=== PATIENT | male | born 1930 | race Caucasian/White ===

== ENCOUNTER 2017-02-25 14:27 | Inpatient (IN) | payer MEDICARE, OTHER ==
[2017-02-25] VITALS (8 sets, daily range): BP systolic 145–180; BP diastolic 67–94; PULSE 91–118; RESP 16–25; TEMP 98.7–99.4; O2SAT 94–100
[~2017-02-25] VITALS: Ht 170.2 cm; Wt 58.8 kg
--- NOTE | 2017-02-25 15:23 | PD ---
HPI . Altered mental status Chief Complaint: Altered Mental Status Time Seen by Provider: 15:07 Travel History International Travel<30 days: No Contact w/Intl Traveler<30days: No History of Present Illness HPI This [facility] with a chief complaint of altered mental status. The patient has dementia. EMS reports that the patient normally has a very good appetite and has not been eating today. The nursing staff at the facility also noticed that the patient had a black eye today. They do not know the etiology of the black eye. Because of these things, the patient was sent to us for evaluation. This patient suffers from dementia and is not able to provide us with any history. [facility] Social History Tobacco Use: No Allergies-Medications (Allergen,Severity, Reaction): Coded Allergies: Seroquel (Verified Allergy, Severe, 02/25/17) Review of Systems ROS Limitations: Poor Historian Physical Exam Narrative GENERAL: The patient is awake and responds to questions. He is lying on the stretcher with his eyes closed. He is able to tell us his name. SKIN: Warm and dry. HEAD: Atraumatic. Normocephalic. Right periorbital ecchymosis. EYES: Pupils equal and round. Extraocular movements are intact. ENT: No nasal bleeding or discharge. Mucous membranes pink and moist. NECK: Trachea midline. Neck is nontender. Full range of motion. CARDIOVASCULAR: Irregularly irregular rate and rhythm. RESPIRATORY: No accessory muscle use. Lungs sound clear. GASTROINTESTINAL: Abdomen soft, non-tender, nondistended. MUSCULOSKELETAL: No obvious deformities. No edema. NEUROLOGICAL: Awake and alert. The only cranial nerve abnormality is some weakness of the right side of his mouth. Motor grossly within normal limits. Full and equal mysql developer strength. PSYCHIATRIC: Unable to assess. Data Data Last Documented VS Vital Signs Date Time Temp Pulse Resp B/P Pulse Ox O2 Delivery O2 Flow Rate FiO2 02/25/17 17:02 20 96 Room Air 02/25/17 15:15 99.4 105 180/92 Orders Electrocardiogram (02/25/17 15:07) Complete Blood Count With Diff (02/25/17 15:07) Comprehensive Metabolic Panel (02/25/17 15:07) Creatine Kinase (Cpk) (02/25/17 15:07) Prothrombin Time / Inr (Pt) (02/25/17 15:07) Act Partial Throm Time (Ptt) (02/25/17 15:07) Troponin I (02/25/17 15:07) Urinalysis - C+S If Indicated (02/25/17 15:07) Lactic Acid Sepsis Protocol (02/25/17 15:07) Blood Culture (02/25/17 15:07) Ecg Monitoring (02/25/17 15:07) Iv Access Insert/Monitor (02/25/17 15:07) Cath For Specimen (02/25/17 15:07) Oximetry (02/25/17 15:07) Ct Brain W/O Iv Contrast(Rout) (02/25/17 15:14) Chest, Single Ap (02/25/17 15:07) Ns + Kcl 20 Meq Inj (Ns + Kcl 20 Meq Inj (02/25/17 18:47) Admit To Inpatient (02/25/17 ) Neuro Checks . ORDERED (02/25/17 18:47) Activity Bed Rest (02/25/17 18:47) Elevate Head Of Bed (02/25/17 18:47) Intake + Output NORRIS.Q8H (02/25/17 18:47) Scd / José / Foot Pump NORRIS.QSHIFT (02/25/17 18:47) Diet Regular Basic (02/25/17 Dinner) Sodium Chloride 0.9% Flush (Ns Flush) (02/25/17 19:00) Sodium Chloride 0.9% Flush (Ns Flush) (02/25/17 21:00) Docusate Sodium (Colace) (02/25/17 21:00) Pantoprazole (Protonix) (02/26/17 09:00) Ondansetron Inj (Zofran Inj) (02/25/17 19:00) Acetamin-Hydrocod 325-10 Mg ([place] 10-32 (02/25/17 19:00) Labetalol Inj (Trandate Inj) (02/25/17 19:00) Clonidine (Catapres) (02/25/17 19:00) Complete Blood Count With Diff (02/26/17 06:00) Basic Metabolic Panel (Bmp) (02/26/17 06:00) Prothrombin Time / Inr (Pt) (02/26/17 06:00) Act Partial Throm Time (Ptt) (02/26/17 06:00) Resp Incentive Spirometry (02/25/17 ) Consult Pt Eval & Treat (02/25/17 18:47) Nicardipine Inj (Cardene Inj) (02/25/17 19:00) Inpatient Certification (02/25/17 ) Enalaprilat Inj (Vasotec Inj) (02/25/17 19:00) Ct Brain W/O Iv Contrast(Rout) (02/26/17 08:00) Labs Laboratory Tests Test 02/25/17 02/25/17 15:31 16:43 White Blood Count 5.5 TH/MM3 Red Blood Count 4.51 MIL/MM3 Hemoglobin 13.2 GM/DL Hematocrit 39.2 % Mean Corpuscular Volume 86.8 FL Mean Corpuscular Hemoglobin 29.2 PG Mean Corpuscular Hemoglobin 33.7 % Concent Red Cell Distribution Width 14.5 % Platelet Count 179 TH/MM3 Mean Platelet Volume 7.2 FL Neutrophils (%) (Auto) 78.0 % Lymphocytes (%) (Auto) 11.7 % Monocytes (%) (Auto) 9.3 % Eosinophils (%) (Auto) 0.7 % Basophils (%) (Auto) 0.3 % Neutrophils # (Auto) 4.3 TH/MM3 Lymphocytes # (Auto) 0.6 TH/MM3 Monocytes # (Auto) 0.5 TH/MM3 Eosinophils # (Auto) 0.0 TH/MM3 Basophils # (Auto) 0.0 TH/MM3 CBC Comment DIFF FINAL Differential Comment Prothrombin Time 11.4 SEC Prothromb Time International 1.0 RATIO Ratio Activated Partial 26.6 SEC Thromboplast Time Sodium Level 143 MEQ/L Potassium Level 3.5 MEQ/L Chloride Level 106 MEQ/L Carbon Dioxide Level 31.1 MEQ/L Anion Gap 6 MEQ/L Blood Urea Nitrogen 23 MG/DL Creatinine 0.93 MG/DL Estimat Glomerular Filtration 77 ML/MIN Rate Random Glucose 99 MG/DL Lactic Acid Level 1.2 mmol/L Calcium Level 9.3 MG/DL Total Bilirubin 1.2 MG/DL Aspartate Amino Transf 17 U/L (AST/SGOT) Alanine Aminotransferase 16 U/L (ALT/SGPT) Alkaline Phosphatase 101 U/L Total Creatine Kinase 79 U/L Troponin I LESS THAN 0.02 NG/ML Total Protein 6.7 GM/DL Albumin 3.5 GM/DL Urine Color YELLOW Urine Turbidity CLEAR Urine pH 6.0 Urine Specific [place] 1.022 Urine Protein TRACE mg/dL Urine Glucose (UA) NEG mg/dL Urine Ketones NEG mg/dL Urine Occult Blood TRACE Urine Nitrite NEG Urine Bilirubin NEG Urine Urobilinogen LESS THAN 2.0 MG/DL Urine Leukocyte Esterase NEG Urine RBC 6 /hpf Urine Hyaline Casts 1 /lpf Urine Mucus FEW /lpf Microscopic Urinalysis Comment CATH-CULT NOT IND MDM Medical Decision Making Medical Screen Exam Complete: Yes Emergency Medical Condition: Yes Medical Record Reviewed: Yes (this patient has no previous records here. He has very little formation that was sent with him from the jail.) Interpretation(s) EKG shows a normal sinus rhythm with no ST segment elevation or depression. Differential Diagnosis Differential diagnosis of altered mental status includes but is not limited to infection, electrolyte abnormality, neurological event, intoxication Narrative Course This patient presents to us from the jail because of altered mental status. He does have evidence of trauma to his head. CT has been ordered. Basic labs and urinalysis have also been ordered. CBC & BMP Diagram 02/25/17 15:31 Cardiac enzymes are negative. LFTs are basically normal. Lactic acid is normal. UA shows no evidence of infection. Last Impressions Head CT 02/25/17 1514 Signed Impressions: Service Date/Time: Saturday, February 25, 2017 17:37 - CONCLUSION: 4 cm parenchymal hematoma in the right parieto-occipital region Samy Maldonado MD Chest X-Ray 02/25/17 1507 Signed Impressions: Service Date/Time: Saturday, February 25, 2017 15:19 - CONCLUSION: No acute cardiopulmonary abnormality is identified. Samy Talavera MD I will consult neurosurgery. Diagnosis Primary Impression: Altered mental status Qualified Code: R41.82 - Altered mental status, unspecified altered mental status type Additional Impression: Intracerebral hematoma Qualified Code: S06.349A - Traumatic hemorrhage of right cerebrum with loss of consciousness, initial encounter Admitting Information Admitting Physician Requests: Admit Condition: Stable Natalya Walters MD Feb 25, 2017 15:23
--- NOTE | 2017-02-25 15:48 | RADRPT ---
EXAM DATE/TIME: 02/25/2017 15:19 [facility] COMPARISON: No previous studies available for comparison. INDICATIONS : Syncope MEDICAL HISTORY : None. SURGICAL HISTORY : None. ENCOUNTER: Initial ACUITY: 1 day PAIN SCORE: Non-responsive. LOCATION: Bilateral chest FINDINGS: AP view of the chest demonstrates a normal-sized cardiac silhouette with tortuous descending thoracic aorta and calcification of the aorta. No effusion, consolidation, or pneumothorax is visualized. Bon es and soft tissues demonstrate no acute finding. CONCLUSION: No acute cardiopulmonary abnormality is identified. Samy Talavera MD on February 25, 2017 at 15:46 Board Certified Radiologist. This report was verified electronically.
[2017-02-25 15:50] LABS: AUTOMATED NEUTROPHIL # 4.3 TH/MM3 (1.8-7.7); BASOPHIL % 0.3 % (0.0-2.0); EOSINOPHIL % 0.7 % (0.0-4.0); HEMATOCRIT 39.2 % (39.0-51.0); HEMO FLAGS DIFF FINAL; LYMPH % 11.7 % (9.0-44.0); LYMPHOCYTE # 0.6 TH/MM3 (1.0-4.8); MEAN CELL VOLUME 86.8 FL (80.0-100.0); MEAN CORPUSCULAR HEMOGLOBIN 29.2 PG (27.0-34.0); MEAN CORPUSCULAR HGB CONC 33.7 % (32.0-36.0); MONO % 9.3 % (0.0-8.0); PLATELET COUNT 179 TH/MM3 (150-450); RED BLOOD COUNT 4.51 MIL/MM3 (4.50-5.90); RED CELL DISTRIBUTION WIDTH 14.5 % (11.6-17.2); WHITE BLOOD COUNT 5.5 TH/MM3 (4.0-11.0)
[2017-02-25 16:03] LABS: APTT (PATIENT) 26.6 SEC (24.3-30.1); PROTHROMBIN TIME - PATIENT 11.4 SEC (9.8-11.6)
[2017-02-25 16:14] LABS: ALT (GPT) 16 U/L (12-78); ANION GAP 6 MEQ/L (5-15); AST (GOT) 17 U/L (15-37); BICARBONATE 31.1 MEQ/L (21.0-32.0); BLOOD UREA NITROGEN 23 MG/DL (7-18); CHLORIDE 106 MEQ/L (98-107); GLOMERULAR FILTRATION RATE 77 ML/MIN (>89); POTASSIUM 3.5 MEQ/L (3.5-5.1); SODIUM (NA) 143 MEQ/L (136-145)
[2017-02-25 16:18] LABS: ALKALINE PHOSPHATASE 101 U/L (45-117); TOTAL BILIRUBIN ADULT 1.2 MG/DL (0.2-1.0)
[2017-02-25 16:20] LABS: CREATINE KINASE 79 U/L (39-308)
[2017-02-25 17:24] LABS: BLOOD, URINE TRACE (NEG); GLUCOSE,URINE NEG (NEG); HYALINE CAST, URINE 1 /lpf (RARE); KETONE, URINE NEG (NEG); MUCUS URINE FEW /lpf (OCC); NITRITE,URINE NEG (NEG); URINE COLOR YELLOW (YELLW/STRAW)
[2017-02-25 17:26] LABS: COMMENT (UR) CATH-CULT NOT IND; CULTURE IF INDICATED CATH CULTURE NOT IND
--- NOTE | 2017-02-25 17:45 | RADRPT ---
EXAM DATE/TIME: 02/25/2017 17:37 [facility] COMPARISON: No previous studies available for comparison. INDICATIONS : Altered mental status. RADIATION DOSE: 36.18 CTDIvol (mGy) MEDICAL HISTORY : Non-responsive. SURGICAL HISTORY : Non-responsive. ENCOUNTER: Initial ACUITY: 1 day PAIN SCALE: Non-responsive LOCATION: cranial TECHNIQUE: Multiple contiguous axial images were obtained of the head. Using automated exposure control and adj ustment of the mA and/or kV according to patient size, radiation dose was kept as low as reasonably a chievable to obtain optimal diagnostic quality images. DICOM format image data is available electro nically for review and comparison. FINDINGS: There is a 4 cm parenchymal hematoma in the right parieto-occipital region with mild surrounding ministerio a. There is moderate local mass effect with effacement of the regional cortical sulci. There is encep halomalacia in the contralateral left occipital region. The ventricles are minimally asymmetric. No s ignificant brain shift is present. The basal cisterns are patent. The extracranial structures are joi ign and intact. CONCLUSION: 4 cm parenchymal hematoma in the right parieto-occipital region Samy Maldonado MD on February 25, 2017 at 17:41 Board Certified Radiologist. This report was verified electronically.
[2017-02-25] MEDS ORDERED: SODIUM CHLORIDE 0.9% FLUSH 10 ML FLUSH IV FLUSH PRN (19:00)
[2017-02-25] MEDS ORDERED: ACETAMINOPHEN/HYDROcodone 325 MG/10 MG TAB PO PRN (19:00)
[2017-02-25] MEDS ORDERED: cloNIDine HCL 0.1 MG TAB NG PRN (19:00)
[2017-02-25] MEDS ORDERED: ONDANSETRON HCL 4 MG/2 ML VIAL IV PRN (19:00)
[2017-02-25] MEDS ORDERED: niCARdipine INJ 25 MG in SODIUM CHLOR 0.9% 250 ML INJ 250 ML IV PRN (19:00)
--- NOTE | 2017-02-25 19:14 | HHI.HP ---
HPI Service Neurosurgery Primary Care Physician Unknown Chief Complaint: Patient fell History of Present Illness 86-year-old male brought to the emergency room from the long term facility where he resides. According to the patient's son, who accompanies patient in the emergency room, the patient was found on the ground this morning. No definite witnessed fall although he was noted to have ecchymosis around the right eye. No seizure activity reported. The patient has a history of dementia. His son states that the patient has not had a significant change in his mental status today or over the recent past few days. However it has been noticed that he has not been eating as much over the past few weeks and also not ambulating as much as usual. His son states that the patient is usually very active, ambulating quite a bit. Patient apparently started to get problems with dementia approximately 3 years ago. He initially was living with his son, but became too difficult to care for and has been in the assisted-living facility for an extended time. Review of Systems Review of systems cannot be obtained from the patient. His son states that the patient has not had any complaints recently. Other than the problems as noted above, he has not had any obvious medical issues recently. Past Family Social History Allergies: Coded Allergies: Seroquel (Verified Allergy, Severe, 02/25/17) Past Medical History History of gastroesophageal reflux Dementia Hypertension Past Surgical History AAA repair 40 years ago Reported Medications Zestril 5 mg by mouth daily Claritin 10 mg by mouth daily Xanax 0.5 mg twice a day Namenda 5 mg by mouth twice a day Restoril 50 mg at bedtime daily Desyrel 100 mg by mouth at bedtime daily Family History Negative for cancer, diabetes, neurologic disorders, cardiac disease Social History He is to smoke a pipe many years ago. No history of alcohol use Physical Exam Vital Signs Vital Signs Date Time Temp Pulse Resp B/P Pulse Ox O2 Delivery O2 Flow Rate FiO2 02/25/17 17:02 20 96 Room Air 02/25/17 15:15 99.4 105 16 180/92 95 Physical Exam Gen.: Normally developed elderly gentleman in no apparent distress. Respiratory: Mild inspiratory wheeze left upper lobe Cardiac: Regular without murmur. No carotid bruit Abdomen: Soft and nontender. Decreased bowel sounds. No hepatosplenomegaly Extremities: No significant extremity edema. No lower extremity cyanosis. No significant varicosities. Dorsalis pedis posterior plus bilateral. Skin: Scattered skin contusions. No significant laceration. Musculoskeletal: No long bone or joint deformity throughout the upper or lower extremities. No pain with upper and lower extremity range of motion. HEENT: Tympanic membranes clear. Upper dentures. Poor lower dentition. Right periorbital mild edema and ecchymosis. No CSF otorrhea or rhinorrhea. Sclerae are clear and nonicteric. No other facial ecchymosis or edema noted. Head: Normocephalic. No scalp lacerations contusions tenderness or edema. Neurologic: Mild lethargy. Arouses easily to voice. Opens eyes briefly to voice. Follows a few simple commands. Answers questions with a few words with soft speech with mild dysarthria. Significant confusion. Memory cannot be adequately assessed but appears markedly diminished. Pupils 3 mm reactive to 2 mm Conjugate extraocular movements Right facial paresis Tongue protrudes in the midline Facial sensory appears intact Acknowledges hearing to finger rub bilateral Response to visual stimuli grossly in the right and left quadrants of both eyes. Sternocleidomastoid muscle testing intact. Sensation appears intact to light touch all extremities per patient report. He moves all extremities major flexion and extension groups with good strength Poonam's response absent bilateral No ankle clonus Plantar responses are neutral Fine motor movements are moderately impaired in the upper extremities but difficult to test due to decreased mental status. Laboratory Laboratory Tests Test 02/25/17 02/25/17 15:31 16:43 White Blood Count 5.5 Red Blood Count 4.51 Hemoglobin 13.2 Hematocrit 39.2 Mean Corpuscular Volume 86.8 Mean Corpuscular Hemoglobin 29.2 Mean Corpuscular Hemoglobin 33.7 Concent Red Cell Distribution Width 14.5 Platelet Count 179 Mean Platelet Volume 7.2 Neutrophils (%) (Auto) 78.0 Lymphocytes (%) (Auto) 11.7 Monocytes (%) (Auto) 9.3 Eosinophils (%) (Auto) 0.7 Basophils (%) (Auto) 0.3 Neutrophils # (Auto) 4.3 Lymphocytes # (Auto) 0.6 Monocytes # (Auto) 0.5 Eosinophils # (Auto) 0.0 Basophils # (Auto) 0.0 CBC Comment DIFF FINAL Differential Comment Prothrombin Time 11.4 Prothromb Time International 1.0 Ratio Activated Partial 26.6 Thromboplast Time Sodium Level 143 Potassium Level 3.5 Chloride Level 106 Carbon Dioxide Level 31.1 Anion Gap 6 Blood Urea Nitrogen 23 Creatinine 0.93 Estimat Glomerular Filtration 77 Rate Random Glucose 99 Lactic Acid Level 1.2 Calcium Level 9.3 Total Bilirubin 1.2 Aspartate Amino Transf 17 (AST/SGOT) Alanine Aminotransferase 16 (ALT/SGPT) Alkaline Phosphatase 101 Total Creatine Kinase 79 Troponin I LESS THAN 0.02 Total Protein 6.7 Albumin 3.5 Urine Color YELLOW Urine Turbidity CLEAR Urine pH 6.0 Urine Specific [place] 1.022 Urine Protein TRACE Urine Glucose (UA) NEG Urine Ketones NEG Urine Occult Blood TRACE Urine Nitrite NEG Urine Bilirubin NEG Urine Urobilinogen LESS THAN 2.0 Urine Leukocyte Esterase NEG Urine RBC 6 Urine Hyaline Casts 1 Urine Mucus FEW Microscopic Urinalysis Comment CATH-CULT NOT IND Date/Time Procedure Status Source Growth 02/25/17 15:37 Aerobic Blood Culture Received Blood Peripheral Pending 02/25/17 15:37 Anaerobic Blood Culture Received Blood Peripheral Pending Result Diagram: 02/25/17 1531 02/25/17 1531 Imaging 02/25/17 CT scan head images reviewed by the undersigned. Agree with findings as noted below. No skull fracture and pneumocephalus or hydrocephalus noted. No evidence of infarction.: Head CT 02/25/17 1514 Signed Impressions: Service Date/Time: Saturday, February 25, 2017 17:37 - CONCLUSION: 4 cm parenchymal hematoma in the right parieto-occipital region Samy Maldonado MD Chest X-Ray 02/25/17 1507 Signed Impressions: Service Date/Time: Saturday, February 25, 2017 15:19 - CONCLUSION: No acute cardiopulmonary abnormality is identified. Samy Talavera MD Assessment and Plan Assessment and Plan Impression: 1. Right occipital intracranial hemorrhage. Most likely traumatic hemorrhagic contusion. 2. Hypertension 3. Dementia 4. Probable right basilar skull fracture versus localized contusion of the right orbit. No hemotympanum. Plan: Findings were discussed with the patient's son in the emergency room. Plan admission to the intensive surgical care unit for close neurologic checks and vital signs. Antihypertensive medications as needed for control of blood pressure. Continue baseline medications. Non-chemical DVT prophylaxis Ulcer prophylaxis Physical therapy and out of bed with assistance tolerated. Advance diet as tolerated Follow-up CT scan head 02/26/17 Advised the patient's son that patient is a moderate risk for further delayed intracranial hemorrhage. He states that his father has a living will. Roosevelt Vasquez MD Feb 25, 2017 19:14
[2017-02-25] MEDS: ENALAPRILAT 1.25 MG/ML VIAL IV PUSH PRN (19:51)
[2017-02-25] MEDS: NS + KCL 20 MEQ INJ 1,000 ML IV SCH (19:51)
[2017-02-25] MEDS ORDERED: LISI-589 PO (21:04)
[2017-02-25] MEDS: MEMANTINE HCL 5 MG TAB PO SCH (22:13)
[2017-02-25] MEDS: ALPRAZolam 0.5 MG TAB PO SCH (22:14)
[2017-02-25] MEDS: SODIUM CHLORIDE 0.9% FLUSH 10 ML FLUSH IV FLUSH SCH (22:14)
[2017-02-25] MEDS: DOCUSATE SODIUM 100 MG CAP PO SCH (22:14)
[2017-02-25] MEDS: traZODone HCL 100 MG TAB PO SCH (22:14)
[2017-02-25] MEDS: TEMAZEPAM 15 MG CAP PO PRN (23:38)
[2017-02-26] VITALS (17 sets, daily range): BP systolic 144–167; BP diastolic 63–94; PULSE 65–105; RESP 17–35; TEMP 97–98.7; O2SAT 94–99
[2017-02-26] MEDS ORDERED: ALPR.5 PO (04:30)
[2017-02-26] MEDS ORDERED: REST15CA PO (04:30)
[2017-02-26] MEDS ORDERED: NAME5TAB2 PO (04:30)
[2017-02-26] MEDS ORDERED: CLAR10CA3 PO (04:30)
[2017-02-26 04:37] LABS: AUTOMATED NEUTROPHIL # 3.5 TH/MM3 (1.8-7.7); BASOPHIL % 0.5 % (0.0-2.0); EOSINOPHIL # 0.1 TH/MM3 (0-0.4); EOSINOPHIL % 1.2 % (0.0-4.0); HEMATOCRIT 35.3 % (39.0-51.0); HEMO FLAGS DIFF FINAL; LYMPH % 16.6 % (9.0-44.0); LYMPHOCYTE # 0.8 TH/MM3 (1.0-4.8); MEAN CELL VOLUME 84.8 FL (80.0-100.0); MEAN CORPUSCULAR HEMOGLOBIN 29.3 PG (27.0-34.0); MEAN CORPUSCULAR HGB CONC 34.5 % (32.0-36.0); MONO % 8.9 % (0.0-8.0); NEUT % 72.8 % (16.0-70.0); PLATELET COUNT 160 TH/MM3 (150-450); RED BLOOD COUNT 4.16 MIL/MM3 (4.50-5.90); RED CELL DISTRIBUTION WIDTH 14.2 % (11.6-17.2); WHITE BLOOD COUNT 4.8 TH/MM3 (4.0-11.0)
[2017-02-26 04:50] LABS: APTT (PATIENT) 28.7 SEC (24.3-30.1); INTERNATIONAL NORMALIZED RATIO 1.1 RATIO; PROTHROMBIN TIME - PATIENT 11.7 SEC (9.8-11.6)
[2017-02-26 05:06] LABS: BICARBONATE 27.8 MEQ/L (21.0-32.0); POTASSIUM 3.8 MEQ/L (3.5-5.1)
[2017-02-26] MEDS: ENALAPRILAT 1.25 MG/ML VIAL IV PUSH PRN ×2 (05:07→21:59)
[2017-02-26] MEDS: NS + KCL 20 MEQ INJ 1,000 ML IV SCH ×2 (05:08→16:15)
[2017-02-26] MEDS: LABETALOL HCL 100 MG/20 ML VIAL IV PRN (06:47)
--- NOTE | 2017-02-26 08:35 | RADRPT ---
EXAM DATE/TIME: 02/26/2017 08:11 [facility] COMPARISON: CT BRAIN W/O CONTRAST, February 25, 2017, 17:37. INDICATIONS : Evaluate hemorrhage. RADIATION DOSE: 46.37 CTDIvol (mGy) MEDICAL HISTORY : Hypertension. Dementia. SURGICAL HISTORY : None. ENCOUNTER: Subsequent ACUITY: 1 day PAIN SCALE: Non-responsive LOCATION: cranial TECHNIQUE: Multiple contiguous axial images were obtained of the head. Using automated exposure control and adj ustment of the mA and/or kV according to patient size, radiation dose was kept as low as reasonably a chievable to obtain optimal diagnostic quality images. DICOM format image data is available electro nically for review and comparison. FINDINGS: Again noted is intraparenchymal hemorrhage in right posterior parietal occipital junction measur es almost 3.3 cm in the AP diameter not significantly changed with surrounding vasogenic edema and no appreciable mass effect. There is encephalomalacia on the left side and not changed. The rest of the examination has not significantly changed. CONCLUSION: Fairly stable intraparenchymal hemorrhage on the right without any mass effect. Jennifer Parisi MD on February 26, 2017 at 8:29 Board Certified Radiologist. This report was verified electronically.
[2017-02-26] MEDS: SODIUM CHLORIDE 0.9% FLUSH 10 ML FLUSH IV FLUSH SCH ×2 (09:00→20:15)
[2017-02-26] MEDS: MEMANTINE HCL 5 MG TAB PO SCH ×2 (09:23→20:15)
[2017-02-26] MEDS: LISINOPRIL 5 MG TAB PO SCH (09:23)
[2017-02-26] MEDS: PANTOPRAZOLE SOD 40 MG DELAYED RELEASE TAB PO SCH (09:23)
[2017-02-26] MEDS: DOCUSATE SODIUM 100 MG CAP PO SCH ×2 (09:23→20:15)
[2017-02-26] MEDS: LORATADINE 10 MG TAB PO SCH (09:23)
[2017-02-26] MEDS: ALPRAZolam 0.5 MG TAB PO SCH ×2 (09:33→20:15)
--- NOTE | 2017-02-26 09:50 | HHI.NSPN ---
(Jun Rangel) History Chief Complaint: Unable to obtain due to patient's clinical condition. (Jun Rangel) Interval History 02/25: 86-year-old male brought to the emergency room from the long-term facility where he resides. According to the patient's son, who accompanies patient in the emergency room, the patient was found on the ground this morning. No definite witnessed fall although he was noted to have ecchymosis around the right eye. No seizure activity reported. The patient has a history of dementia. His son states that the patient has not had a significant change in his mental status today or over the recent past few days. However it has been noticed that he has not been eating as much over the past few weeks and also not ambulating as much as usual. His son states that the patient is usually very active, ambulating quite a bit. Patient apparently started to get problems with dementia approximately 3 years ago. He initially was living with his son, but became too difficult to care for and has been in the assisted-living facility for an extended time. 02/26: Patient asleep but awakens to verbal stimuli. He does interact but his voice is soft and his conversation is confused and meanders. He had a repeat CT brain this morning which was essentially unchanged. (Jun Rangel) System Review Comments Unable to obtain due to patient's clinical condition. (Jun Rangel) Exam Results Vital Signs Date Time Temp Pulse Resp B/P Pulse Ox O2 Delivery O2 Flow Rate FiO2 02/26/17 06:00 87 02/26/17 06:00 23 159/78 96 02/26/17 04:00 98.7 02/25/17 21:02 Room Air Intake and Output 02/25/17 02/25/17 02/26/17 08:00 16:00 00:00 Intake Total 477 ml Output Total 800 ml Balance -323 ml (Jun Rangel) Physical Examination General: Patient asleep and awakens to verbal stimuli, readily converses, no apparent distress. HEENT: Right lateral orbital ecchymosis NTTP. PERRLA, EOM appear intact. Respiratory: CTAB w/o W/R/R, equal excursion, nonlaboured, on RA. Cardiac: S1S2 w/RRR w/o M/G/R, radial & pedal pulses 2+ bilaterally, cap refill < 2 sec, no pedal edema. Monitor is sinus rhythm w/o any ectopy noted. Abdomen: Soft, nontender, positive bowel sounds. Skin: Cool, dry & intact. Scattered ecchymosis ages indeterminate, no evident rashes, ulcerations or other lesions. Musculoskeletal: MONTANO to command. No evident deformities or clubbing. Neurologic: Asleep but opens eyes to verbal stimuli, confused, GCS 12-13 (E3 V3-4 M6) Speech soft & muffled and not always clear, inappropriate to questions asked Follows simple commands w/coaxing but inconsistently PERRL 3 mm to 2 mm Motor strength 5/5 RUE, hand tube cleaning operator & triceps 4+/5, RLE 5/5, plantar extension LLE 5/5, otherwise patient wasn't able or cooperative in testing (Jun Rangel) Lab, Micro, Other Results This practitioner reviewed the CT imaging for today and compared with yesterday' s, the intraparenchymal haemorrhage appears stable. Allergies Coded Allergies Type Severity Reaction Last Updated Verified Seroquel Allergy Severe 02/25/17 Yes Recent Impressions Head CT 02/26/17 0800 Signed Impressions: Service Date/Time: Sunday, February 26, 2017 08:11 - CONCLUSION: Fairly stable intraparenchymal hemorrhage on the right without any mass effect. Jennifer Parisi MD Head CT 02/25/17 1514 Signed Impressions: Service Date/Time: Saturday, February 25, 2017 17:37 - CONCLUSION: 4 cm parenchymal hematoma in the right parieto-occipital region Samy Maldonado MD Chest X-Ray 02/25/17 1507 Signed Impressions: Service Date/Time: Saturday, February 25, 2017 15:19 - CONCLUSION: No acute cardiopulmonary abnormality is identified. Samy Talavera MD 06:00 18:00 06:00 18:00 06:00 18:00 Intake Total 477 ml Output Total 800 ml Balance -323 ml Intake Oral 120 ml IV Total 357 ml Output Urine Total 800 ml # Voids 1 Laboratory Tests Test 02/25/17 02/25/17 02/26/17 15:31 16:43 04:27 White Blood Count 5.5 TH/MM3 4.8 TH/MM3 Red Blood Count 4.51 MIL/MM3 4.16 MIL/MM3 Hemoglobin 13.2 GM/DL 12.2 GM/DL Hematocrit 39.2 % 35.3 % Mean Corpuscular Volume 86.8 FL 84.8 FL Mean Corpuscular Hemoglobin 29.2 PG 29.3 PG Mean Corpuscular Hemoglobin 33.7 % 34.5 % Concent Red Cell Distribution Width 14.5 % 14.2 % Platelet Count 179 TH/MM3 160 TH/MM3 Mean Platelet Volume 7.2 FL 6.7 FL Neutrophils (%) (Auto) 78.0 % 72.8 % Lymphocytes (%) (Auto) 11.7 % 16.6 % Monocytes (%) (Auto) 9.3 % 8.9 % Eosinophils (%) (Auto) 0.7 % 1.2 % Basophils (%) (Auto) 0.3 % 0.5 % Neutrophils # (Auto) 4.3 TH/MM3 3.5 TH/MM3 Lymphocytes # (Auto) 0.6 TH/MM3 0.8 TH/MM3 Monocytes # (Auto) 0.5 TH/MM3 0.4 TH/MM3 Eosinophils # (Auto) 0.0 TH/MM3 0.1 TH/MM3 Basophils # (Auto) 0.0 TH/MM3 0.0 TH/MM3 CBC Comment DIFF FINAL DIFF FINAL Differential Comment Prothrombin Time 11.4 SEC 11.7 SEC Prothromb Time International 1.0 RATIO 1.1 RATIO Ratio Activated Partial 26.6 SEC 28.7 SEC Thromboplast Time Sodium Level 143 MEQ/L 141 MEQ/L Potassium Level 3.5 MEQ/L 3.8 MEQ/L Chloride Level 106 MEQ/L 107 MEQ/L Carbon Dioxide Level 31.1 MEQ/L 27.8 MEQ/L Anion Gap 6 MEQ/L 6 MEQ/L Blood Urea Nitrogen 23 MG/DL 20 MG/DL Creatinine 0.93 MG/DL 0.77 MG/DL Estimat Glomerular Filtration 77 ML/MIN 96 ML/MIN Rate Random Glucose 99 MG/DL 108 MG/DL Lactic Acid Level 1.2 mmol/L Calcium Level 9.3 MG/DL 9.2 MG/DL Total Bilirubin 1.2 MG/DL Aspartate Amino Transf 17 U/L (AST/SGOT) Alanine Aminotransferase 16 U/L (ALT/SGPT) Alkaline Phosphatase 101 U/L Total Creatine Kinase 79 U/L Troponin I LESS THAN 0.02 NG/ML Total Protein 6.7 GM/DL Albumin 3.5 GM/DL Urine Color YELLOW Urine Turbidity CLEAR Urine pH 6.0 Urine Specific [place] 1.022 Urine Protein TRACE mg/dL Urine Glucose (UA) NEG mg/dL Urine Ketones NEG mg/dL Urine Occult Blood TRACE Urine Nitrite NEG Urine Bilirubin NEG Urine Urobilinogen LESS THAN 2.0 MG/DL Urine Leukocyte Esterase NEG Urine RBC 6 /hpf Urine Hyaline Casts 1 /lpf Urine Mucus FEW /lpf Microscopic Urinalysis Comment CATH-CULT NOT IND Vital Signs Date Time Temp Pulse Resp B/P Pulse Ox O2 Delivery O2 Flow Rate FiO2 02/26/17 06:00 87 02/26/17 06:00 87 23 159/78 96 02/26/17 05:00 98 27 158/77 94 02/26/17 04:00 98.7 92 17 146/76 94 02/26/17 04:00 87 02/26/17 03:00 87 21 163/71 96 02/26/17 02:00 92 35 158/73 94 02/26/17 02:00 92 02/26/17 01:00 95 23 155/72 96 02/26/17 00:00 105 02/26/17 00:00 98.6 105 22 157/70 94 02/25/17 23:00 118 22 146/67 94 02/25/17 22:00 98.9 91 25 145/77 95 02/25/17 22:00 91 02/25/17 21:02 106 18 153/94 98 Room Air 02/25/17 20:15 106 18 158/78 97 Room Air 02/25/17 19:46 107 18 176/94 97 Room Air 02/25/17 19:20 98.7 115 18 167/78 100 Room Air 02/25/17 17:02 20 96 Room Air 02/25/17 15:15 99.4 105 16 180/92 95 (Jun Rangel) Medical Decision Making Impression and Plan Impression: 1. Right occipital intracranial hemorrhage. Most likely traumatic hemorrhagic contusion. 2. Hypertension 3. Dementia 4. Probable right basilar skull fracture versus localized contusion of the right orbit. No hemotympanum. CT brain essentially stable intraparenchymal haemorrhage w/o any mass effect Patient appears neurologically stable Plan: Frequent neuro checks Antihypertensive medications as needed for control of blood pressure. Continue baseline medications. Non-chemical DVT prophylaxis Ulcer prophylaxis Physical therapy and out of bed with assistance tolerated. Advance diet as tolerated (Jun Rangel) Attending Statement The exam, history, and the medical decision-making described in the above note were completed with the assistance of the mid-level provider. I reviewed and agree with the findings presented. I attest that I had a [id number] encounter with the patient on the same day, and personally performed and documented my assessment and findings in the medical record. On my examination today, the patient is sitting up in a chair. He has no eye opening spontaneously to voice. Pupils are 3 mm nonreactive. Slightly disconjugate moderate extraocular movements. He responds to simple questions with mostly unintelligible speech, significant dysarthria. He moves all extremities to command with moderate to good strength, slightly less than the left upper extremity. 02/26/17 CT scan head images reviewed by the undersigned. He has a stable right occipital intracranial hemorrhage without significant mass effect. Continuing close intensive care neurologic checks and vital signs. Systolic blood pressure mostly in the 140s-150s today. Continue non-chemical DVT prophylaxis. Diet as tolerated. Physical therapy following. Discussed with therapy today. (Roosevelt Vasquez MD) Jun Rangel Feb 26, 2017 09:50 Roosevelt Vasquez MD Feb 26, 2017 14:16
--- NOTE | 2017-02-26 12:23 | EKG ---
Date Performed: 02/25/2017 Time Performed: 17:10:09 PTAGE: 86 years EKG: SINUS TACHYCARDIA MARKED LEFT AXIS DEVIATION ABNORMAL ECG NO PREVIOUS TRACING DOCTOR: Taran Clements Interpretating Date/Time 02/26/2017 12:19:55
[2017-02-26] MEDS: traZODone HCL 100 MG TAB PO SCH (20:15)
[2017-02-26] MEDS: TEMAZEPAM 15 MG CAP PO PRN (21:59)
[2017-02-27] VITALS (11 sets, daily range): BP systolic 150–176; BP diastolic 70–97; PULSE 66–101; RESP 17–26; TEMP 97.9–99.2; O2SAT 91–100
[2017-02-27] MEDS: NS + KCL 20 MEQ INJ 1,000 ML IV SCH ×3 (02:04→23:40)
[2017-02-27] MEDS: LABETALOL HCL 100 MG/20 ML VIAL IV PRN ×2 (03:37→12:42)
[2017-02-27] MEDS: MEMANTINE HCL 5 MG TAB PO SCH ×2 (08:16→23:39)
[2017-02-27] MEDS: DOCUSATE SODIUM 100 MG CAP PO SCH ×2 (08:16→23:39)
[2017-02-27] MEDS: ALPRAZolam 0.5 MG TAB PO SCH ×2 (08:16→23:39)
[2017-02-27] MEDS: LORATADINE 10 MG TAB PO SCH (08:16)
[2017-02-27] MEDS: SODIUM CHLORIDE 0.9% FLUSH 10 ML FLUSH IV FLUSH SCH ×2 (08:16→21:00)
[2017-02-27] MEDS: LISINOPRIL 5 MG TAB PO SCH (08:16)
[2017-02-27] MEDS: PANTOPRAZOLE SOD 40 MG DELAYED RELEASE TAB PO SCH (08:16)
--- NOTE | 2017-02-27 10:38 | HHI.NSPN ---
(Jun Rangel) History Chief Complaint: Unable to obtain due to patient's clinical condition. (Jun Rangel) Interval History 02/25: 86-year-old male [facility]. According to the patient's son, who accompanies patient in the emergency room, the patient was found on the ground this morning. No definite witnessed fall although he was noted to have ecchymosis around the right eye. No seizure activity reported. The patient has a history of dementia. His son states that the patient has not had a significant change in his mental status today or over the recent past few days. However it has been noticed that he has not been eating as much over the past few weeks and also not ambulating as much as usual. His son states that the patient is usually very active, ambulating quite a bit. Patient apparently started to get problems with dementia approximately 3 years ago. He initially was living with his son, but became too difficult to care for and has been in the assisted-living facility for an extended time. 02/26: Patient asleep but awakens to verbal stimuli. He does interact but his voice is soft and his conversation is confused and meanders. He had a repeat CT brain this morning which was essentially unchanged. 02/27: Patient awake and fidgeting about this morning. His conversation is rambling and muffled. (Jun Rangel) System Review Comments Unable to obtain due to patient's clinical condition. (Jun Rangel) Exam Results Vital Signs Date Time Temp Pulse Resp B/P Pulse Ox O2 Delivery O2 Flow Rate FiO2 02/27/17 10:00 72 02/27/17 08:00 98.5 25 162/81 100 02/27/17 07:00 Room Air Intake and Output 02/26/17 02/26/17 02/27/17 08:00 16:00 00:00 Intake Total 1041 ml 938 ml Balance 1041 ml 938 ml (Jun Rangel) Physical Examination General: Patient awake & readily interacts & converses, no apparent distress. HEENT: Right lateral orbital ecchymosis NTTP. PERRLA, EOM appear intact. Respiratory: CTAB w/o W/R/R, equal excursion, nonlaboured, on RA. Cardiac: S1S2 w/RRR w/o M/G/R, radial & pedal pulses 2+ bilaterally, cap refill < 2 sec, no pedal edema. Monitor is sinus rhythm w/o any ectopy noted. Abdomen: Soft, nontender, positive bowel sounds. Skin: Cool, dry & intact. Scattered ecchymosis ages indeterminate, no evident rashes, ulcerations or other lesions. Musculoskeletal: MONTANO to command. No evident deformities or clubbing. Neurologic: Awake, confused, GCS 13 (E3 V4 M6) Speech soft & garbled, inappropriate to questions asked Follows simple commands w/coaxing but inconsistently PERRL 3 mm to 2 mm Motor strength 5/5 RUE, LUE hand sanitizer 5/5, RLE 5/5, plantar extension LLE 5/5, otherwise patient wasn't able or cooperative in testing (Jun Rangel) Medical Decision Making Impression and Plan Impression: 1. Right occipital intracranial hemorrhage. Most likely traumatic hemorrhagic contusion. 2. Hypertension 3. Dementia 4. Probable right basilar skull fracture versus localized contusion of the right orbit. No hemotympanum. CT brain essentially stable intraparenchymal haemorrhage w/o any mass effect Patient continues to be neurologically stable Plan: Neuro checks Antihypertensive medications as needed for control of blood pressure. Continue baseline medications. Non-chemical DVT prophylaxis Ulcer prophylaxis Physical therapy and out of bed with assistance tolerated. Advance diet as tolerated Will transfer to floor (Jun Rangel) Attending Statement I have personally seen and examined the patient on the date of this note. Pertinent documentation and study results have been reviewed by the undersigned. I have personally developed the treatment plan and performed medical decision making. Agree with findings, exam, and treatment plan as noted above. On examination today patient remains moderately lethargic. Respirations clear to auscultation Cardiac exam regular rhythm without murmur Abdomen soft, nontender, positive bowel sounds No significant extremity edema Significant dysarthria, mumbling mostly incomprehensible words in response to questions. Moves all extremities well with good strength Plan transfer to regular floor today. Continue monitoring blood pressure, scheduled and as needed antihypertensive medications (Roosevelt Vasquez MD) Jun Rangel Feb 27, 2017 10:38 Roosevelt Vasquez MD Feb 27, 2017 13:46
[2017-02-27] MEDS: ENALAPRILAT 1.25 MG/ML VIAL IV PUSH PRN (18:10)
[2017-02-27] MEDS: traZODone HCL 100 MG TAB PO SCH (23:39)
[2017-02-28 00:15] VITALS: BP 156/72; PULSE 89; RESP 18; TEMP 97.9; O2SAT 95
[2017-02-28 03:58] VITALS: BP 147/71; PULSE 86; RESP 18; TEMP 97.9; O2SAT 98
[2017-02-28 07:59] VITALS: BP 159/82; PULSE 85; RESP 20; TEMP 97.2; O2SAT 98
[2017-02-28] MEDS: ALPRAZolam 0.5 MG TAB PO SCH ×2 (10:30→22:34)
[2017-02-28] MEDS: DOCUSATE SODIUM 100 MG CAP PO SCH ×2 (10:30→22:34)
[2017-02-28] MEDS: LORATADINE 10 MG TAB PO SCH (10:30)
[2017-02-28] MEDS: PANTOPRAZOLE SOD 40 MG DELAYED RELEASE TAB PO SCH (10:30)
[2017-02-28] MEDS: MEMANTINE HCL 5 MG TAB PO SCH ×2 (10:30→22:34)
[2017-02-28] MEDS: LISINOPRIL 5 MG TAB PO SCH (10:30)
[2017-02-28 11:59] VITALS: BP 114/68; PULSE 103; RESP 20; TEMP 97.5; O2SAT 99
--- NOTE | 2017-02-28 12:46 | HHI.NSPN ---
(Jun Rangel) History Chief Complaint: Unable to obtain due to patient's clinical condition. (Jun Rangel) Interval History 02/25: 86-year-old male brought to the emergency room from the [facility]. According to the patient's son, who accompanies patient in the emergency room, the patient was found on the ground this morning. No definite witnessed fall although he was noted to have ecchymosis around the right eye. No seizure activity reported. The patient has a history of dementia. His son states that the patient has not had a significant change in his mental status today or over the recent past few days. However it has been noticed that he has not been eating as much over the past few weeks and also not ambulating as much as usual. His son states that the patient is usually very active, ambulating quite a bit. Patient apparently started to get problems with dementia approximately 3 years ago. He initially was living with his son, but became too difficult to care for and has been in the assisted-living facility for an extended time. 02/26: Patient asleep but awakens to verbal stimuli. He does interact but his voice is soft and his conversation is confused and meanders. He had a repeat CT brain this morning which was essentially unchanged. 02/27: Patient awake and fidgeting about this morning. His conversation is rambling and muffled. 02/28: The patient is awake and fidgeting this afternoon when seen. He is in no apparent distress and appears comfortable. Nursing had just placed the patient back in bed from sitting. A sitter is with the patient. His conversation remains rambling and muffled. The patient was transferred from [facility] yesterday since he was neurologically stable. (Jun Rangel) System Review Comments Unable to obtain due to patient's clinical condition. (Jun Rangel) Exam Results Vital Signs Date Time Temp Pulse Resp B/P Pulse Ox O2 Delivery O2 Flow Rate FiO2 02/28/17 11:59 97.5 103 20 114/68 99 02/27/17 07:00 Room Air Intake and Output 02/27/17 02/27/17 02/27/17 07:59 15:59 23:59 Intake Total 848 ml 848 ml Balance 848 ml 848 ml (Jun Rangel) Physical Examination General: Patient awake & readily interacts & converses, no apparent distress. HEENT: Right lateral orbital ecchymosis resolving. PERRLA. Respiratory: CTAB w/o W/R/R, equal excursion, nonlaboured, on RA. Cardiac: S1S2 w/RRR w/o M/G/R, radial & pedal pulses 2+ bilaterally, cap refill < 2 sec, no pedal edema. Abdomen: Soft, nontender, positive bowel sounds. Skin: Warm, dry & intact. Scattered ecchymosis ages indeterminate, no evident rashes, ulcerations or other lesions. Musculoskeletal: MONTANO spontaneously to some degree. No evident deformities or clubbing. Neurologic: Awake, confused, GCS 12 (E3 V3 M6) Speech soft & garbled, inappropriate to questions asked Follows simple commands w/coaxing but inconsistently PERRL 3 mm to 2 mm Motor strength 5/5 bilateral hand acquisition cost estimator, left hip flexion & right foot extension , otherwise patient wasn't cooperative in testing (Jun Rangel) Medical Decision Making Impression and Plan Impression: 1. Right occipital intracranial hemorrhage. Most likely traumatic hemorrhagic contusion. 2. Hypertension 3. Dementia 4. Probable right basilar skull fracture versus localized contusion of the right orbit. No hemotympanum. CT brain essentially stable intraparenchymal haemorrhage w/o any mass effect Patient continues to be neurologically stable Plan: Neuro checks Antihypertensive medications as needed for control of blood pressure. Continue baseline medications. Non-chemical DVT prophylaxis Ulcer prophylaxis Physical therapy and out of bed with assistance tolerated. Advance diet as tolerated (Jun Rangel) Attending Statement I have personally seen and examined the patient on the date of this note. Pertinent documentation and study results have been reviewed by the undersigned. I have personally developed the treatment plan and performed medical decision making. Agree with findings, exam, and treatment plan as noted above. Discussed with the patient's sitter in the room. He is on a pured diet, eating a little better today. On my examination today, the patient remains awake and relatively alert. His speech is a little better this evening. He has partially intelligible words. He follows commands intermittently with his left greater than right upper extremity. Moves lower extremities to command. Respirations clear to auscultation Cardiac regular without murmur Abdomen soft nontender No extremity edema Stable neurologic status following right occipital posterior medical hemorrhage. He is stable for discharge from a neurosurgical standpoint. (Roosevelt Vasquez MD) Jun Rangel Feb 28, 2017 12:45 Roosevelt Vasquez MD Feb 28, 2017 19:43
[2017-02-28 15:50] VITALS: BP 141/93; PULSE 105; RESP 20; TEMP 98.1; O2SAT 98
--- NOTE | 2017-02-28 19:46 | HHI.DCPOC ---
Discharge Care Plan Diagnosis: (1) Altered mental status (2) Intracerebral hematoma Your Health Problems Are: Difficulty with ADL Exercise Tolerance Loss of Movements Goals to Promote Your Health * To prevent worsening of your condition and complications * To maintain your health at the optimal level Directions to Meet Your Goals Take your medications as prescribed Follow your dietary instruction Follow activity as directed Keep your appointments as scheduled Take your immunizations and boosters as scheduled If your symptoms worsen call your PCP, if no PCP go to Urgent Care Center or Emergency Room Smoking is Dangerous to Your Health. Avoid second hand smoke Call the 24-hour hour crisis hotline for domestic abuse at Roosevelt Vasquez MD Feb 28, 2017 19:46
[2017-02-28] MEDS: NS + KCL 20 MEQ INJ 1,000 ML IV SCH (19:47)
[2017-02-28 20:00] VITALS: BP 134/75; PULSE 83; RESP 18; TEMP 97; O2SAT 98
[2017-02-28] MEDS: SODIUM CHLORIDE 0.9% FLUSH 10 ML FLUSH IV FLUSH SCH (21:00)
[2017-02-28] MEDS: traZODone HCL 100 MG TAB PO SCH (22:35)
[2017-03-01] VITALS: BP 138/81; PULSE 103; RESP 18; TEMP 97.7; O2SAT 97
[2017-03-01 04:00] VITALS: BP 132/86; PULSE 93; RESP 20; TEMP 97.1; O2SAT 96
[2017-03-01] MEDS: NS + KCL 20 MEQ INJ 1,000 ML IV SCH ×2 (06:11→14:56)
[2017-03-01 08:24] VITALS: BP 136/82; PULSE 102; RESP 20; TEMP 96.9; O2SAT 96
[2017-03-01] MEDS: SODIUM CHLORIDE 0.9% FLUSH 10 ML FLUSH IV FLUSH SCH (09:00)
[2017-03-01] MEDS: MEMANTINE HCL 5 MG TAB PO SCH (09:24)
[2017-03-01] MEDS: PANTOPRAZOLE SOD 40 MG DELAYED RELEASE TAB PO SCH (09:24)
[2017-03-01] MEDS: DOCUSATE SODIUM 100 MG CAP PO SCH (09:24)
[2017-03-01] MEDS: LISINOPRIL 5 MG TAB PO SCH (09:25)
[2017-03-01] MEDS: LORATADINE 10 MG TAB PO SCH (09:25)
[2017-03-01] MEDS: ALPRAZolam 0.5 MG TAB PO SCH (09:25)
[2017-03-01 11:45] VITALS: BP 164/88; PULSE 104; RESP 20; TEMP 97.4; O2SAT 95
[2017-03-01 12:30] VITALS: BP 149/82
[2017-03-01] MEDS ORDERED: HYDR-3583 PO (14:35)
--- NOTE | 2017-03-01 14:44 | HHI.NSPN ---
(Jun Rangel) History Chief Complaint: Unable to obtain due to patient's clinical condition. (Jun Rangel) Interval History 02/25: 86-year-old male brought to the emergency room from the [facility] facility where he resides. According to the patient's son, who accompanies patient in the emergency room, the patient was found on the ground this morning. No definite witnessed fall although he was noted to have ecchymosis around the right eye. No seizure activity reported. The patient has a history of dementia. His son states that the patient has not had a significant change in his mental status today or over the recent past few days. However it has been noticed that he has not been eating as much over the past few weeks and also not ambulating as much as usual. His son states that the patient is usually very active, ambulating quite a bit. Patient apparently started to get problems with dementia approximately 3 years ago. He initially was living with his son, but became too difficult to care for and has been in the assisted-living facility for an extended time. 02/26: Patient asleep but awakens to verbal stimuli. He does interact but his voice is soft and his conversation is confused and meanders. He had a repeat CT brain this morning which was essentially unchanged. 02/27: Patient awake and fidgeting about this morning. His conversation is rambling and muffled. 02/28: The patient is awake and fidgeting this afternoon when seen. He is in no apparent distress and appears comfortable. Nursing had just placed the patient back in bed from sitting. A sitter is with the patient. His conversation remains rambling and muffled. The patient was transferred from [facility] yesterday since he was neurologically stable. 03/01: The patient is awake and fidgeting this afternoon. He readily interacts and follows commands. His speech remains garbled, muffled & confused. (Jun Rangel) System Review Comments Unable to obtain due to patient's clinical condition. (Jun Rangel) Exam Results Vital Signs Date Time Temp Pulse Resp B/P Pulse Ox O2 Delivery O2 Flow Rate FiO2 03/01/17 12:30 149/82 03/01/17 11:45 97.4 104 20 95 03/01/17 08:25 Room Air Intake and Output 02/28/17 02/28/17 02/28/17 07:59 15:59 23:59 Intake Total 240 ml 120 ml Balance 240 ml 120 ml (Jun Rangel) Physical Examination General: Patient awake & readily interacts & converses, no apparent distress. HEENT: Right lateral orbital ecchymosis resolving. PERRLA. Respiratory: CTAB w/o W/R/R, equal excursion, nonlaboured, on RA. Cardiac: S1S2 w/RRR w/o M/G/R, radial & pedal pulses 2+ bilaterally, cap refill < 2 sec, no pedal edema. Abdomen: Soft, nontender, positive bowel sounds. Skin: Warm, dry & intact. Scattered ecchymosis ages indeterminate, no evident rashes, ulcerations or other lesions. Musculoskeletal: MONTANO spontaneously to some degree. No evident deformities or clubbing. Neurologic: Awake, confused, GCS 12 (E3 V3 M6) Speech soft & garbled, inappropriate to questions asked Follows simple commands w/coaxing but inconsistently PERRL 3 mm to 2 mm Limited motor strength assessment due to patient's lack of cooperation but appears to be 5/5 (Jun Rangel) Medical Decision Making Impression and Plan Impression: 1. Right occipital intracranial hemorrhage. Most likely traumatic hemorrhagic contusion. 2. Hypertension 3. Dementia 4. Probable right basilar skull fracture versus localized contusion of the right orbit. No hemotympanum. CT brain essentially stable intraparenchymal haemorrhage w/o any mass effect Patient doing well & is neurologically stable Plan: Neuro checks Antihypertensive medications as needed for control of blood pressure. Continue baseline medications. Non-chemical DVT prophylaxis Ulcer prophylaxis Physical therapy and out of bed with assistance tolerated. Advance diet as tolerated Patient discharged to SNF (Jun Rangel) Attending Statement I have personally seen and examined the patient on the date of this note. Pertinent documentation and study results have been reviewed by the undersigned. I have personally developed the treatment plan and performed medical decision making. Agree with findings, exam, and treatment plan as noted above. Patient is relatively alert today. Still with moderate dysarthria but attempts to converse more today than over the past few days. With all extremities with good strength. He is stable from a neurosurgical standpoint and will be discharged today to [facility]. (Roosevelt Vasquez MD) Jun Rangel Mar 01, 2017 14:44 Roosevelt Vasquez MD Mar 01, 2017 20:20
[2017-03-01 15:48] VITALS: BP 153/80; PULSE 100; RESP 20; TEMP 97.5; O2SAT 94
--- NOTE | 2017-03-01 16:09 | HHI.DS ---
Discharge Summary Admission Date Feb 25, 2017 at 19:02 Discharge Date: Mar 01, 2017 Admitting Diagnosis intracerebral hemorrhage (1) Intracerebral hematoma Diagnosis: Secondary ICD Code: I61.9 (2) Altered mental status Diagnosis: Principal ICD Code: R41.82 Brief History 86-year-old male brought to the emergency room from the custodial facility where he resides. According to the patient's son, who accompanies patient in the emergency room, the patient was found on the ground this morning. No definite witnessed fall although he was noted to have ecchymosis around the right eye. No seizure activity reported. The patient has a history of dementia. His son states that the patient has not had a significant change in his mental status today or over the recent past few days. However it has been noticed that he has not been eating as much over the past few weeks and also not ambulating as much as usual. His son states that the patient is usually very active, ambulating quite a bit. Patient apparently started to get problems with dementia approximately 3 years ago. He initially was living with his son, but became too difficult to care for and has been in the assisted-living facility for an extended time. CBC/BMP: 02/26/17 0427 02/26/17 0427 Hospital Course 02/25: 86-year-old male brought to the emergency room from the custodial facility where he resides. According to the patient's son, who accompanies patient in the emergency room, the patient was found on the ground this morning. No definite witnessed fall although he was noted to have ecchymosis around the right eye. No seizure activity reported. The patient has a history of dementia. His son states that the patient has not had a significant change in his mental status today or over the recent past few days. However it has been noticed that he has not been eating as much over the past few weeks and also not ambulating as much as usual. His son states that the patient is usually very active, ambulating quite a bit. Patient apparently started to get problems with dementia approximately 3 years ago. He initially was living with his son, but became too difficult to care for and has been in the assisted-living facility for an extended time. 02/26: Patient asleep but awakens to verbal stimuli. He does interact but his voice is soft and his conversation is confused and meanders. He had a repeat CT brain this morning which was essentially unchanged. 02/27: Patient awake and fidgeting about this morning. His conversation is rambling and muffled. 02/28: The patient is awake and fidgeting this afternoon when seen. He is in no apparent distress and appears comfortable. Nursing had just placed the patient back in bed from sitting. A sitter is with the patient. His conversation remains rambling and muffled. The patient was transferred from [facility] yesterday since he was neurologically stable. 03/01: The patient is awake and fidgeting this afternoon. He readily interacts and follows commands. His speech remains garbled, muffled & confused. Pt Condition on Discharge: Stable Discharge Disposition: Discharge to SNF Discharge Instructions DIET: Follow Instructions for: Pureed Diet ACTIVITIES You can perform: Weight Bearing As Ursula Activities to Avoid: Lifting/Bending, Strenuous Activity Jnu Rangel Mar 01, 2017 16:09
== END 2017-03-01 17:10 | DRG 87 ==
LOC: NEPE 14:27 → NEDA 19:02 → N03A 21:17 → N05A 02-27 17:27
PROVIDERS: ADMIT Neurological Surgery; ATTEND Neurological Surgery
DX: S06.310A Contusion and laceration of right cerebrum without loss of consciousness, initial encounter (principal); F03.90 Unspecified dementia, unspecified severity, without behavioral disturbance, psychotic disturbance, mood disturbance, and anxiety; S02.101A Fracture of base of skull, right side, initial encounter for closed fracture; I10 Essential (primary) hypertension; K21.9 Gastro-esophageal reflux disease without esophagitis; S00.11XA Contusion of right eyelid and periocular area, initial encounter; Z86.79 Personal history of other diseases of the circulatory system; W19.XXXA Unspecified fall, initial encounter; Y93.9 Activity, unspecified; Y92.099 Unspecified place in other non-institutional residence as the place of occurrence of the external cause
CPT/HCPCS: 70450; 71010; 76937; 80048; 80053; 81001; 82550; 83605; 84484; 85025; 85610; 85730; 87040; 93005; 94150; J3480

== ENCOUNTER 2017-03-02 06:59 | Inpatient (IN) | payer MEDICARE, OTHER ==
[2017-03-02] VITALS (26 sets, daily range): BP systolic 57–143; BP diastolic 47–85; PULSE 98–124; RESP 16–24; TEMP 97.6–99.9; O2SAT 95–100
[~2017-03-02] VITALS: Ht 175.3 cm; Wt 63.5 kg
[~2017-03-02 06:59] MED LIST: ALPR.5 PO; CLAR10CA3 PO; HYDR-3583 PO; LISI-589 PO; NAME5TAB2 PO; REST15CA PO
--- NOTE | 2017-03-02 07:59 | RADRPT ---
EXAM DATE/TIME: 03/02/2017 07:41 [facility] COMPARISON: CHEST SINGLE AP, February 25, 2017, 15:19. INDICATIONS : Short of breath and verify et tube placement. MEDICAL HISTORY : Hypertension. Dementia. SURGICAL HISTORY : None. ENCOUNTER: Initial ACUITY: 1 day PAIN SCORE: Non-responsive. LOCATION: Bilateral chest FINDINGS: ET tube is present with tip overlapping approximately 3 cm above the jannet. Small left pleural effus ion is present not identified previously. Consolidation is not seen. Aorta is tortuous and ectatic. H eart and mediastinum are unremarkable for technique. CONCLUSION: Left pleural effusion. Jennifer Parisi MD on March 02, 2017 at 7:53 Board Certified Radiologist. This report was verified electronically.
--- NOTE | 2017-03-02 08:00 | PD ---
HPI Chief Complaint: Respiratory Distress Time Seen by Provider: 07:10 Travel History International Travel<30 days: No Contact w/Intl Traveler<30days: No Traveled to known affect area: No History of Present Illness HPI history VERY LIMITED DUE TO PATIENT INTUBATED ON FIELD FOR SOB BY EMS, NO OTHER MAJOR HISTORY IS GIVEN...REVIEWED FACE SHEET FROM OR WHICH SHOWED FULL CODE STATUS, NO DNR PAPERWORK ACCOMPANYING PATIENT. ADDITIONALLY NO MAJOR HISTORY EXCEPT HTN/ANXIETY PRIOR TO INTRACRANIAL BLEED WHICH IS MOST LIKELY DUE TO HYPERTENSIVE BLEED. PFSH Past Medical History Anxiety: Yes Hypertension: Yes Insomnia: Yes Social History Alcohol Use: No (UNABLE TO OBTAIN) Tobacco Use: No Substance Use: No Allergies-Medications (Allergen,Severity, Reaction): Coded Allergies: Seroquel (Verified Allergy, Severe, 03/02/17) Reported Meds & Prescriptions Reported Meds & Active Scripts Active Hydrocodone-Acetaminophen 10-325 mg Tab 1 Tab PO Q6H PRN Reported Restoril (Temazepam) 15 Mg Cap 15 Mg PO HS PRN Namenda (Memantine) 5 Mg Tab 5 Mg PO BID Xanax (Alprazolam) 0.5 Mg Tab 0.5 Mg PO Q4H PRN Claritin (Loratadine) 10 Mg Cap 10 Mg PO DAILY Zestril (Lisinopril) 5 Mg Tab 5 Mg PO DAILY Review of Systems ROS Limitations: Clinical Condition, Intubated Physical Exam Exam Limitations: Clinical Condition, Other: (INTUBATED) Narrative GENERAL: SKIN: Warm and dry. HEAD: Atraumatic. Normocephalic. EYES: Pupils equal and round. No scleral icterus. No injection or drainage. NOTED RESOLVING ECHYMOSIS OVER RIGHT EYELID, PERRL, 4MM NAYA, ENT: No nasal bleeding or discharge. Mucous membranes pink and moist....7.5ETT IN PLACE AND SECURED. NECK: Trachea midline. No JVD. CARDIOVASCULAR: TACHYCARDIC rate and REGULAR rhythm. RESPIRATORY: No accessory muscle use. Clear to auscultation. Breath sounds equal bilaterally. GASTROINTESTINAL: Abdomen soft, non-tender, nondistended. Hepatic and splenic margins not palpable. MUSCULOSKELETAL: Extremities without clubbing, cyanosis, or edema. No obvious deformities. NEUROLOGICAL: Awake and alert. No obvious cranial nerve deficits. Motor grossly within normal limits. Five out of 5 muscle strength in the arms and legs. Normal speech. PSYCHIATRIC: Appropriate mood and affect; insight and judgment normal. Data Data Last Documented VS Vital Signs Date Time Temp Pulse Resp B/P Pulse Ox O2 Delivery O2 Flow Rate FiO2 03/02/17 08:45 101 16 109/58 Ventilator 03/02/17 08:30 100 03/02/17 07:25 97.8 03/02/17 07:05 100 Orders Electrocardiogram (03/02/17 07:14) Complete Blood Count With Diff (03/02/17 07:14) Comprehensive Metabolic Panel (03/02/17 07:14) Ckmb (Isoenzyme) Profile (03/02/17 07:14) Troponin I (03/02/17 07:14) B-Type Natriuretic Peptide (03/02/17 07:14) Prothrombin Time / Inr (Pt) (03/02/17 07:14) Act Partial Throm Time (Ptt) (03/02/17 07:14) Lipase (03/02/17 07:14) Urinalysis - C+S If Indicated (03/02/17 07:14) Thyroid Stimulating Hormone (03/02/17 07:14) Chest, Single Ap (03/02/17 07:14) Iv Access Insert/Monitor (03/02/17 07:14) Ecg Monitoring (03/02/17 07:14) Oximetry (03/02/17 07:14) Urinary Catheter Insert/Apply (03/02/17 07:14) Ct Brain W/O Iv Contrast(Rout) (03/02/17 ) Ct Pulmonary Angiogram (03/02/17 08:00) Sodium Chlor 0.9% 1000 Ml Inj (Ns 1000 M (03/02/17 08:15) Sodium Chlorid 0.9% 500 Ml Inj (Ns 500 M (03/02/17 08:15) Arterial Blood Gas (Abg) (03/02/17 08:05) Admit Order (Ed Use Only) (03/02/17 09:14) Labs Laboratory Tests Test 03/02/17 03/02/17 03/02/17 07:15 07:20 08:05 White Blood Count 7.2 TH/MM3 Red Blood Count 3.96 MIL/MM3 Hemoglobin 11.6 GM/DL Hematocrit 33.8 % Mean Corpuscular Volume 85.4 FL Mean Corpuscular Hemoglobin 29.2 PG Mean Corpuscular Hemoglobin 34.2 % Concent Red Cell Distribution Width 14.4 % Platelet Count 275 TH/MM3 Mean Platelet Volume 7.1 FL Neutrophils (%) (Auto) 86.2 % Lymphocytes (%) (Auto) 5.0 % Monocytes (%) (Auto) 7.9 % Eosinophils (%) (Auto) 0.4 % Basophils (%) (Auto) 0.5 % Neutrophils # (Auto) 6.2 TH/MM3 Lymphocytes # (Auto) 0.4 TH/MM3 Monocytes # (Auto) 0.6 TH/MM3 Eosinophils # (Auto) 0.0 TH/MM3 Basophils # (Auto) 0.0 TH/MM3 CBC Comment DIFF FINAL Differential Comment Prothrombin Time 12.7 SEC Prothromb Time International 1.1 RATIO Ratio Activated Partial 26.8 SEC Thromboplast Time Sodium Level 140 MEQ/L Potassium Level 4.1 MEQ/L Chloride Level 106 MEQ/L Carbon Dioxide Level 24.6 MEQ/L Anion Gap 9 MEQ/L Blood Urea Nitrogen 21 MG/DL Creatinine 1.07 MG/DL Estimat Glomerular Filtration 66 ML/MIN Rate Random Glucose 125 MG/DL Calcium Level 8.6 MG/DL Total Bilirubin 0.8 MG/DL Aspartate Amino Transf 18 U/L (AST/SGOT) Alanine Aminotransferase 15 U/L (ALT/SGPT) Alkaline Phosphatase 102 U/L Total Creatine Kinase 42 U/L Troponin I 0.11 NG/ML B-Type Natriuretic Peptide 43 PG/ML Total Protein 5.6 GM/DL Albumin 2.7 GM/DL Lipase 103 U/L Thyroid Stimulating Hormone 1.660 uIU/ML 3rd Gen Urine Color YELLOW Urine Turbidity HAZY Urine pH 5.0 Urine Specific [place] 1.020 Urine Protein 30 mg/dL Urine Glucose (UA) NEG mg/dL Urine Ketones NEG mg/dL Urine Occult Blood SMALL Urine Nitrite NEG Urine Bilirubin NEG Urine Urobilinogen 2.0 MG/DL Urine Leukocyte Esterase NEG Urine RBC 3 /hpf Urine WBC 1 /hpf Urine Squamous Epithelial 1 /hpf Cells Urine Bacteria OCC /hpf Urine Hyaline Casts 32 /lpf Urine Mucus FEW /lpf Microscopic Urinalysis Comment CULT NOT INDICATED Blood Gas Puncture Site RT RADIAL Blood Gas Patient Temperature 98.6 Blood Gas HCO3 21 mmol/L Blood Gas Base Excess -3.0 mmol/L Blood Gas Oxygen Saturation 99 % Arterial Blood pH 7.42 Arterial Blood Partial 33 mmHg Pressure CO2 Arterial Blood Partial 311 mmHG Pressure O2 Arterial Blood Oxygen Content 15.0 Vol % Arterial Blood 1.4 % Carboxyhemoglobin Arterial Blood Methemoglobin 0.4 % Blood Gas Hemoglobin 10.3 G/DL Oxygen Delivery Device VENTILATOR Blood Gas Ventilator Setting 500/16/PEEP5 Blood Gas Inspired Oxygen 100 % MDM Medical Decision Making Medical Screen Exam Complete: Yes Emergency Medical Condition: Yes Medical Record Reviewed: Yes Interpretation(s) SINUS TACH, 114, NL INTERVALS, P PULMONALE, NONSPEC STT CHANGES Differential Diagnosis PNA V PULM EDEMA V SEPSIS V PE Narrative Course PATIENT WAS HERE PREVIOUSLY AND FOUND TO HAVE AN INTRACEREBRAL HEMORRHAGE LIKELY FROM HTN....TODAY APPARENTLY PATIENT WAS EXPERIENCING RESP DISTRESS AND WAS INTUBATED BY EMS, HERE HE WAS FOUND TO BE GCS 3T WITHOUT SEDATION, HYPOTENSIVE SBP IN 70'S, WHICH IMPROVED WITH 2L NS UP TO SBP 100, TACHY CARDIA HAS IMPROVED WELL AND IS SINUS IN 90'S NOW. PATIENT'S TROPONIN WAS ELEVATED AT .11, HOWEVER WITH RECENT ICH NO ANTIPLATELETS NOR ANTICOAGULANTS WERE GIVEN AT THIS MOMENT. Critical Care Narrative CRITICAL CARE NOTE: With evaluation of the patient, labs, EKG, receipt of radiologic studies, administration of medications, reevaluation the patient and discussion of the patient with the admitting physicians, the total critical care time was [60] minutes. Time to perform other separately billable procedures was not included in the critical care time. Physician Communication Physician Communication D/W DR GRIFFIN BALING MACHINE TENDER AT 0910 WILL SEE PATIENT (CURRENTLY AWAITING CT HEAD/ CHEST PE PROTOCOL) Diagnosis Primary Impression: RESPIRATORY FAILURE S/P INTUBATION Additional Impressions: ACUTE NONSTEMI ICH Admitting Information Admitting Physician Requests: Admit Washington Washington MD Mar 02, 2017 08:00
[2017-03-02 08:12] LABS: BLOOD GAS CARBOXYHEMOGLOBIN 1.4 % (0-4); BLOOD GAS HCO3 21 mmol/L (22-26); BLOOD GAS METHEMOGLOBIN 0.4 % (0-2); BLOOD GAS O2 HGB SATURATION 99 % (90-100); BLOOD GAS PCO2 33 mmHg (38-42); BLOOD GAS PO2 311 mmHG (61-120); BLOOD GAS TOTAL HGB 10.3 G/DL (12.0-16.0); CRITICAL VALUE NO; DRAW SITE RT RADIAL; FIO2 100 %; NUMBER OF ARTERIAL PUNCTURES 1; OXYGEN DEVICE VENTILATOR; STAT YES; TEMP CORR TO 98.6; ULNAR PULSE PRESENT; VENT SETTINGS 500/16/PEEP5
[2017-03-02 08:14] LABS: AUTOMATED NEUTROPHIL # 6.2 TH/MM3 (1.8-7.7); BASOPHIL % 0.5 % (0.0-2.0); EOSINOPHIL % 0.4 % (0.0-4.0); HEMATOCRIT 33.8 % (39.0-51.0); HEMO FLAGS DIFF FINAL; LYMPHOCYTE # 0.4 TH/MM3 (1.0-4.8); MEAN CELL VOLUME 85.4 FL (80.0-100.0); MEAN CORPUSCULAR HEMOGLOBIN 29.2 PG (27.0-34.0); MEAN CORPUSCULAR HGB CONC 34.2 % (32.0-36.0); MONO % 7.9 % (0.0-8.0); NEUT % 86.2 % (16.0-70.0); PLATELET COUNT 275 TH/MM3 (150-450); RED BLOOD COUNT 3.96 MIL/MM3 (4.50-5.90); RED CELL DISTRIBUTION WIDTH 14.4 % (11.6-17.2); WHITE BLOOD COUNT 7.2 TH/MM3 (4.0-11.0)
[2017-03-02] MEDS ORDERED: SODIUM CHLORID 0.9% 500 ML INJ 500 ML IV ONE (08:15)
[2017-03-02] MEDS ORDERED: SODIUM CHLOR 0.9% 1000 ML INJ 1,000 ML IV ONE (08:15)
[2017-03-02 08:24] LABS: BACTERIA, URINE OCC /hpf; BLOOD, URINE SMALL (NEG); COMMENT (UR) CULT NOT INDICATED; CULTURE IF INDICATED CULT NOT INDICATED; GLUCOSE,URINE NEG (NEG); HYALINE CAST, URINE 32 /lpf (RARE); KETONE, URINE NEG (NEG); MUCUS URINE FEW /lpf (OCC); NITRITE,URINE NEG (NEG); SQUAMOUS EPITHELIAL CELL URINE 1 /hpf (0-5); URINE COLOR YELLOW (YELLW/STRAW)
[2017-03-02 08:30] LABS: APTT (PATIENT) 26.8 SEC (24.3-30.1); INTERNATIONAL NORMALIZED RATIO 1.1 RATIO; PROTHROMBIN TIME - PATIENT 12.7 SEC (9.8-11.6)
[2017-03-02 08:47] LABS: ALKALINE PHOSPHATASE 102 U/L (45-117); TOTAL BILIRUBIN ADULT 0.8 MG/DL (0.2-1.0)
[2017-03-02 08:52] LABS: CREATINE KINASE 42 U/L (39-308)
[2017-03-02 08:53] LABS: ALT (GPT) 15 U/L (12-78); ANION GAP 9 MEQ/L (5-15); AST (GOT) 18 U/L (15-37); BICARBONATE 24.6 MEQ/L (21.0-32.0); BLOOD UREA NITROGEN 21 MG/DL (7-18); CHLORIDE 106 MEQ/L (98-107); GLOMERULAR FILTRATION RATE 66 ML/MIN (>89); POTASSIUM 4.1 MEQ/L (3.5-5.1); SODIUM (NA) 140 MEQ/L (136-145)
[2017-03-02] MEDS ORDERED: SODIUM CHLORIDE 0.9% FLUSH 10 ML FLUSH IV FLUSH PRN (11:00)
[2017-03-02] MEDS ORDERED: MAGNESIUM HYDROXIDE SUSP 30 ML CUP PO PRN (11:00)
[2017-03-02] MEDS ORDERED: SENNOSIDES 8.6 MG TAB PO PRN (11:00)
[2017-03-02] MEDS ORDERED: RESP: ALBUTEROL 2.5 MG/IPRATROPIUM 0.5 MG NEB (PRN) INH (11:00)
[2017-03-02] MEDS ORDERED: LACTULOSE SYRUP 20 GM/30 ML CUP PO PRN (11:00)
[2017-03-02] MEDS ORDERED: ACETAMINOPHEN 325 MG TAB PO PRN (11:00)
[2017-03-02] MEDS ORDERED: MISCELLANEOUS NURSING INFORMATION XX SCH (11:00)
[2017-03-02] MEDS ORDERED: BISACODYL 10 MG SUPP RECTAL PRN (11:00)
[2017-03-02] MEDS ORDERED: CHLORHEXIDINE GLUCONATE 2 % 1 PACK (2 CLOTHS) TOP PRN (11:00)
[2017-03-02] MEDS ORDERED: IOHEXOL 350 MG/ML 10 ML VIAL (for RAD DIAG) IV ONE (11:46)
--- NOTE | 2017-03-02 11:57 | RADRPT ---
EXAM DATE/TIME: 03/02/2017 11:23 [facility] COMPARISON: CT BRAIN W/O CONTRAST, February 26, 2017, 8:11. INDICATIONS : Altered mental status with history of bleed. RADIATION DOSE: 69.19 CTDIvol (mGy) MEDICAL HISTORY : Non-responsive. SURGICAL HISTORY : Non-responsive. ENCOUNTER: Initial ACUITY: 1 day PAIN SCALE: Non-responsive LOCATION: cranial TECHNIQUE: Multiple contiguous axial images were obtained of the head. Using automated exposure control and adj ustment of the mA and/or kV according to patient size, radiation dose was kept as low as reasonably a chievable to obtain optimal diagnostic quality images. DICOM format image data is available electro nically for review and comparison. FINDINGS: A parenchymal hemorrhage in the right parieto-occipital region continues to evolve without significan t increase in volume of hemorrhage. Surrounding cytotoxic edema is grossly unchanged. Degree of local mass effect is unchanged without global brain shift. 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 The ventricles are stable. CONCLUSION: Little change in evolving right temporoparietal hemorrhage. Samy Maldonado MD on March 02, 2017 at 11:50 Board Certified Radiologist. This report was verified electronically.
--- NOTE | 2017-03-02 12:02 | RADRPT ---
EXAM DATE/TIME: 03/02/2017 11:27 [facility] COMPARISON: No previous studies available for comparison. INDICATIONS : Respiratory failure. Evaluate for pulmonary embolism. IV CONTRAST: 50 cc Omnipaque 350 (iohexol) IV RADIATION DOSE: 19.97 CTDIvol (mGy) MEDICAL HISTORY : Non-responsive. SURGICAL HISTORY : Non-responsive. ENCOUNTER: Initial ACUITY: 1 day PAIN SCALE: Non-responsive LOCATION: chest TECHNIQUE: Volumetric scanning of the chest was performed using a pulmonary embolism protocol MIP images were re constructed. Using automated exposure control and adjustment of the mA and/or kV according to patien t size, radiation dose was kept as low as reasonably achievable to obtain optimal diagnostic quality images. DICOM format image data is available electronically for review and comparison. Follow-up recommendations for incidentally detected pulmonary nodules are based at a minimum on nodul e size and patient risk factors according to Fleischner Society Guidelines. FINDINGS: PULMONARY ARTERIES: No filling defects are seen in the pulmonary arteries through the segmental level. THORACIC AORTA: The descending thoracic aorta is mildly aneurysmal with mild eccentric mural thrombus present posteri heron and laterally in the mid to distal descending thoracic region. Diameter is proximally 5.7 cm. Th e caliber normalizes at the diaphragmatic hiatus. LUNGS: There is mild bibasilar consolidative change PLEURAE: Small bilateral effusions, left larger than right MEDIASTINUM: There is good visualization of the great vessels of the middle mediastinum. No evidence of mediastin al or hilar adenopathy/mass. Atherosclerotic calcifications including within the coronaries. MUSCULOSKELETAL: Within normal limits for patient age. MISCELLANEOUS: The visualized upper abdominal organs demonstrate no acute abnormality. CONCLUSION: No evidence of pulmonary embolism. Bibasilar atelectasis or infiltrate and small effusions. Aneurysmal dilatation of the descending thoracic aorta. Samy Maldonado MD on March 02, 2017 at 11:55 Board Certified Radiologist. This report was verified electronically.
[2017-03-02] MEDS: SODIUM CHLOR 0.9% 1000 ML INJ 1,000 ML IV SCH (12:08)
--- NOTE | 2017-03-02 14:23 | HHI.HP ---
HPI Service Critical Care Medicine Primary Care Physician Unknown Admission Diagnosis ACUTE RESP FAILURE S/P INTUBATION, ACUTE NONSTEMI, Diagnosis: Travel History International Travel<30 Days: No Contact w/Intl Traveler <30 Da: No Traveled to Known Affected Are: No History of Present Illness This is an 88-year-old male who returns to the emergency room from a long term facility secondary to respiratory distress. Upon EMS arrival the patient was noted to have O2 sat duration in the 70s and systolic blood pressure in the 70s and tachycardic with a heart rate in the 120s. Patient will receive medication to include Ativan and etomidate and was intubated on the scene and trans-reported to the emergency department. Of note this patient was admitted 02/25/17 status post intracerebral hemorrhage from a fall. The patient was being followed by neurosurgery at that time Dr. Vasquez was discharged on 03/02/2017, last evening. Upon arrival to the ED the patient received small boluses of fluid, heart rate 80s to 90s, blood pressure systolic 120 and imaging studies were performed. Concern for pulmonary embolus/CT thorax was performed which resulted negative. CT brain was also performed which showed the evolving right temporal parietal hemorrhage which was minimally changed. Critical care medicine was consulted for management. Upon arrival to the ED the patient on no sedation, nonresponsive, vital signs within normal limits. History PFSH Past Medical History Anxiety: Yes Hypertension: Yes Insomnia: Yes Social History Alcohol Use: No (UNABLE TO OBTAIN) Tobacco Use: No Substance Use: No Allergies-Medications Allergies-Medications (Allergen,Severity, Reaction): Coded Allergies: Seroquel (Verified Allergy, Severe, 03/02/17) Reported Meds & Prescriptions Reported Meds & Active Scripts Active Hydrocodone-Acetaminophen 10-325 mg Tab 1 Tab PO Q6H PRN Reported Restoril (Temazepam) 15 Mg Cap 15 Mg PO HS PRN Namenda (Memantine) 5 Mg Tab 5 Mg PO BID Xanax (Alprazolam) 0.5 Mg Tab 0.5 Mg PO Q4H PRN Claritin (Loratadine) 10 Mg Cap 10 Mg PO DAILY Zestril (Lisinopril) 5 Mg Tab 5 Mg PO DAILY ROS Review of Systems ROS Limitations: Clinical Condition, Intubated Past Family Social History Allergies: Coded Allergies: Seroquel (Verified Allergy, Severe, 03/02/17) Family History Unable to obtain secondary to patient's intubated Physical Exam Vital Signs Vital Signs Date Time Temp Pulse Resp B/P Pulse Ox O2 Delivery O2 Flow Rate FiO2 03/02/17 11:20 100 50 03/02/17 11:15 107 16 57/83 100 Ventilator 03/02/17 10:51 100 50 03/02/17 10:30 98 102/68 Ventilator 03/02/17 08:45 101 16 109/58 Ventilator 03/02/17 08:30 98 16 109/64 100 Ventilator 03/02/17 08:00 107 93/61 03/02/17 07:35 16 100 Ventilator 03/02/17 07:25 97.8 103 16 73/50 Ventilator 03/02/17 07:15 105 16 66/47 100 Ventilator 03/02/17 07:10 97.6 116 16 87/50 100 03/02/17 07:05 100 100 Physical Exam GENERAL: Critically ill-appearing elderly gentleman unresponsive intubated. Fine tremorous movements noted, no spontaneous eye opening SKIN: Warm and dry. HEAD: Atraumatic. Normocephalic. EYES: Pupils equal and round. No scleral icterus. No injection or drainage. ENT: No nasal bleeding or discharge. Mucous membranes pink and moist. NECK: Trachea midline. No JVD. CARDIOVASCULAR: Normal rate, regular rhythm. RESPIRATORY: No accessory muscle use. Clear to auscultation. Breath sounds equal bilaterally. GASTROINTESTINAL: Abdomen soft, non-tender, nondistended. No guarding. MUSCULOSKELETAL: Extremities without clubbing, cyanosis, or edema. No obvious deformities. NEUROLOGICAL: GCS 3T. Fine tremors noted bilateral upper and lower extremities. Does not follow commands Laboratory Laboratory Tests Test 03/02/17 03/02/17 03/02/17 07:15 07:20 08:05 White Blood Count 7.2 Red Blood Count 3.96 Hemoglobin 11.6 Hematocrit 33.8 Mean Corpuscular Volume 85.4 Mean Corpuscular Hemoglobin 29.2 Mean Corpuscular Hemoglobin 34.2 Concent Red Cell Distribution Width 14.4 Platelet Count 275 Mean Platelet Volume 7.1 Neutrophils (%) (Auto) 86.2 Lymphocytes (%) (Auto) 5.0 Monocytes (%) (Auto) 7.9 Eosinophils (%) (Auto) 0.4 Basophils (%) (Auto) 0.5 Neutrophils # (Auto) 6.2 Lymphocytes # (Auto) 0.4 Monocytes # (Auto) 0.6 Eosinophils # (Auto) 0.0 Basophils # (Auto) 0.0 CBC Comment DIFF FINAL Differential Comment Prothrombin Time 12.7 Prothromb Time International 1.1 Ratio Activated Partial 26.8 Thromboplast Time Sodium Level 140 Potassium Level 4.1 Chloride Level 106 Carbon Dioxide Level 24.6 Anion Gap 9 Blood Urea Nitrogen 21 Creatinine 1.07 Estimat Glomerular Filtration 66 Rate Random Glucose 125 Calcium Level 8.6 Total Bilirubin 0.8 Aspartate Amino Transf 18 (AST/SGOT) Alanine Aminotransferase 15 (ALT/SGPT) Alkaline Phosphatase 102 Total Creatine Kinase 42 Troponin I 0.11 B-Type Natriuretic Peptide 43 Total Protein 5.6 Albumin 2.7 Lipase 103 Thyroid Stimulating Hormone 1.660 3rd Gen Urine Color YELLOW Urine Turbidity HAZY Urine pH 5.0 Urine Specific [place] 1.020 Urine Protein 30 Urine Glucose (UA) NEG Urine Ketones NEG Urine Occult Blood SMALL Urine Nitrite NEG Urine Bilirubin NEG Urine Urobilinogen 2.0 Urine Leukocyte Esterase NEG Urine RBC 3 Urine WBC 1 Urine Squamous Epithelial 1 Cells Urine Bacteria OCC Urine Hyaline Casts 32 Urine Mucus FEW Microscopic Urinalysis Comment CULT NOT INDICATED Blood Gas Puncture Site RT RADIAL Blood Gas Patient Temperature 98.6 Blood Gas HCO3 21 Blood Gas Base Excess -3.0 Blood Gas Oxygen Saturation 99 Arterial Blood pH 7.42 Arterial Blood Partial 33 Pressure CO2 Arterial Blood Partial 311 Pressure O2 Arterial Blood Oxygen Content 15.0 Arterial Blood 1.4 Carboxyhemoglobin Arterial Blood Methemoglobin 0.4 Blood Gas Hemoglobin 10.3 Oxygen Delivery Device VENTILATOR Blood Gas Ventilator Setting 500/16/PEEP5 Blood Gas Inspired Oxygen 100 Result Diagram: 03/02/1715 03/02/[address] Angiography 03/02/17 0800 Signed Impressions: Service Date/Time: Thursday, March 02, 2017 11:27 - CONCLUSION: No evidence of pulmonary embolism. Bibasilar atelectasis or infiltrate and small effusions. Aneurysmal dilatation of the descending thoracic aorta. Samy Maldonado MD Chest X-Ray 03/02/17 0714 Signed Impressions: Service Date/Time: Thursday, March 02, 2017 07:41 - CONCLUSION: Left pleural effusion. KJillian Parisi MD Head CT 03/02/17 0000 Signed Impressions: Service Date/Time: Thursday, March 02, 2017 11:23 - CONCLUSION: Little change in evolving right temporoparietal hemorrhage. Samy Maldonado MD Septic Shock Reassessment Heart: Regular rate and rhythm Lungs: Clear Skin: Warm Peripheral Pulses: Bounding Right Radial Bounding Left Radial Bounding Right Dorsalis Pedis Bounding Left Dorsalis Pedis Capillary Refill: Brisk Assessment and Plan Assessment and Plan Respiratory arrest Probable aspiration ammonia TBI S/P Intracerebral hemorrhage-temporoparietal 02/25 Altered mental status Dementia GERD History of hypertension Neurologic: -Neurochecks per ICU protocol -Patient currently on no sedation not responsive, received Ativan during intubation and etomidate -Neurology consult -Obtain EEG -03/02 CT brainunchanged involving right temporoparietal hemorrhage Respiratory: -Ventilator bundle -CPAP trials -03/02 chest x-ray small left pleural effusion -03/02 CT PE profile-negative for pulmonary embolus -Obtain sputum culture -Bronchodilators every 6 hours schedule, every 2 hours when necessary Cardiovascular: -Maintain MAP greater than 65mmHg -Will resume antihypertensive medications when clinically indicated Renal: -Insert Cifuentes -- Strict I/Os FEN/GI: --Gentle hydration normal saline 42 cc an hour Heme/ID: --Monitor CBC --Obtain blood urine cultures, follow-up results --Will not initiate empiric antibiotics at this time, patient is afebrile, will monitor closely through serial x-rays and laboratory results and cultures Endocrine: Glucose monitoring per ICU protocol, low dose regimen -- SSI Prophylaxis: GI Prophylaxis Protonix DVT Prophylaxis -- SCDs No pharmacological anticoagulation in the setting of intracerebral hemorrhage Lines: Peripheral IVs 2. Central line if indicated Dispo: Discussed medical status with jude Mccloud [phone]. Palliative Care also consulted for goals of care. Pt has a living will according to previous records. This patient remains critically ill with one or more organ systems which are or may become a threat to life. I have spent in excess of 30 minutes discontinuously in the care and management of this patient. This time is exclusive of procedures, and includes, but is not limited to, evaluation of the patient, review of the medical record, discussions with family, consultants, nursing staff, or respiratory therapy, and documentation in the medical record. Code Status Full Discussed Condition With ED RN and ED Physician Nargis Osullivan W MD Mar 02, 2017 14:23
[2017-03-02] MEDS: ARTIFICIAL TEARS OPTH SOLN 15 ML BTL EACH EYE SCH ×2 (14:49→17:27)
[2017-03-02] MEDS: RESP: ALBUTEROL 2.5 MG/IPRATROPIUM 0.5 MG NEB (SCH) INH ×2 (16:00→22:30)
--- NOTE | 2017-03-02 16:41 | PD.CONS ---
Consult Service Palliative Care Consult Requested By Dr. Osullivan Primary Care Physician Unknown Reason for Consultation a. To assist with evaluation and management of symptoms including:dyspnea, anxiety b. To assist medical decision maker(s) with: better understanding of current medical conditions; weighing benefits/burdens of medical treatment options; making medical treatment decisions. HPI History of Present Illness 86-year-old with past medical history of dementia (3 years), GERD, hypertension , AAA that was recently hospitalized for altered mental status from February 25, 2017 to February 27, 2017. Notes indicate that there was no witnessed fall, but there was noted ecchymosis around the right eye. Patient on CT found to have a 4 cm parenchymal hematoma in the right parieto-occipital region. Neurosurgery was consulted and followed. Medical management only. Repeat CT was performed and was stable. His clinical condition documented show patient will awakens and fidgets, and his conversation is muffled and rambling. Patient was discharge 02/28/2017 to [facility]. It is reported in the medical notes that patient had a living will. Today 03/02/2017 patient was transferred from the nursing facility to the ER due to respiratory distress. Upon EMS arrival patient was found to have O2 sats in the 70s and also systolic blood pressure in the 70s with tachycardia. Patient was intubated on the scene and transported to the ER. * Vitals temperature 97.6, pulse 116, respirations 16, blood pressure is 87/50, pulse ox 100% * WBC 7.2, H&H 11.6 and 33.8, platelet is 275 * Sodium 140, potassium 4.1, chloride is 106, bicarbonate is 24.6, BUN is 21, creatinine is 1.07 * Troponin I 0.11 * UA is negative for leukocyte esterase or nitrites and culture is not indicated * PT 12.7, INR is 1.1, PTT is 26.8 * Head CT shows little change in involving right temporal parietal hemorrhage * Chest x-ray showed left pleural effusion * CTA is negative for PE. There is bilateral atelectasis or infiltrate and small effusion. 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 His felt that patient probably have aspiration pneumonia. Sputum cultures are obtained, bronchodilator therapies was ordered. Palliative care was consulted to review goals of care On my visit patient is intubated now on any sedation. There is spontaneous nonpurposeful movement. Unable to elicit any history. I spoke with son Nito Mccloud, and updated son on clinical condition. The patient's son stated that there is a living will, in which she will bring in. Apparently patient was also a DNR. Patient's son stated that he was healthcare surrogate, and the only living relative he have left. Patient is , and no other living children except for Nito. Goals of care reviewed: == Son on his way from [place]. == Endorse no cpr, compression/ acls. or resucitation. == Pt is to be remain intubated. == Will have schedule palliative care meeting around 9:45 to 10 am tomorrow. ==He did ask if pt could be medically extubated? I state we don't know just yet , but given his advance age and dementia, functional status, overall prognosis for a functional/meaningful recovery likely will be poor. Family is open to transition to comfort measures, if pt clinical conditions continues to worsen. Function/Cognitive Trajectory Has dementia for 3 years, getting increasingly difficult for her son to take care of patient and patient was transferred to nursing facility. He is dependent on ADLs. Medical records document that patient on discharge from last hospitalization was rambling, mumble incoherently Review of Systems ROS Limitations: Clinical Condition Past Family Social History Coded Allergies: Seroquel (Verified Allergy, Severe, 03/02/17) Past Medical History dementia (3 years), GERD, hypertension, AAA Past Surgical History AAA repair 40 years ago Reported Medications Zestril 5 mg by mouth daily Claritin 10 mg by mouth daily Xanax 0.5 mg twice a day Namenda 5 mg by mouth twice a day Restoril 50 mg at bedtime daily Desyrel 100 mg by mouth at bedtime daily Current Medications Medications (Trade) Dose Ordered Sig/Yael Route Start Time Stop Time Status Last Admin (NS 1000 ml Inj) 1,000 ml @ 42 mls/hr [id number] IV 03/02/17 10:54 03/02/17 12:08 (NS Flush) 2 ml UNSCH PRN IV FLUSH 03/02/17 11:00 (NS Flush) 2 ml BID IV FLUSH 03/02/17 21:00 (Tylenol) 650 mg Q6H PRN PO 03/02/17 11:00 (Protonix Inj) 40 mg DAILY IV 03/03/17 09:00 (Tears Naturale Opth Soln) 1 drop TID EACH EYE 03/02/17 13:00 03/02/17 14:49 Miscellaneous Information 1 [id number] XX 03/02/17 11:00 (Chlorhexidine 2% Cloth) 3 pack Taper DAILY@04 TOP 03/03/17 04:00 02/27/18 03:59 (Chlorhexidine 2% Cloth) 3 pack UNSCH PRN TOP 03/02/17 11:00 (Leonor-Colace) 1 tab BID PO 03/02/17 21:00 (Milk Of Magnesia Liq) 30 ml Q12H PRN PO 03/02/17 11:00 (Senokot) 17.2 mg Q12H PRN PO 03/02/17 11:00 (Dulcolax Supp) 10 mg DAILY PRN RECTAL 03/02/17 11:00 (Lactulose Liq) 30 ml DAILY PRN PO 03/02/17 11:00 (Peridex 0.12% Liq) 15 ml BID@08,20 MT 03/02/17 20:00 Family History Negative for cancer, diabetes, neurologic disorders, cardiac disease Substance Use Tobacco: Smokes a pipe many many years ago Alcohol: No Prescription med abuse: No Illicits: No Psychosocial History Elderly gentleman skilled nursing dependent. One surviving son. Spiritual/Cultural Factors Unable to elicit Living Will: Completed, but not made available Health Care Surrogate: Completed, but not made available Physical Exam Vital Signs Date Time Temp Pulse Resp B/P Pulse Ox O2 Delivery O2 Flow Rate FiO2 03/02/17 15:00 99.9 110 16 107/57 100 Ventilator 03/02/17 14:15 108 16 120/78 100 Ventilator 03/02/17 13:53 100 50 03/02/17 13:30 105 16 138/85 100 Ventilator 03/02/17 11:20 100 50 03/02/17 11:15 107 16 57/83 100 Ventilator 03/02/17 10:51 100 50 03/02/17 10:30 98 102/68 Ventilator 03/02/17 08:45 101 16 109/58 Ventilator 03/02/17 08:30 98 16 109/64 100 Ventilator 03/02/17 08:00 107 93/61 03/02/17 07:35 16 100 Ventilator 03/02/17 07:25 97.8 103 16 73/50 Ventilator 03/02/17 07:15 105 16 66/47 100 Ventilator 03/02/17 07:10 97.6 116 16 87/50 100 03/02/17 07:05 100 100 Exam CONSTITUTIONAL/GENERAL: This is elderly genetleman intubated TUBES/LINES/DRAINS: ET tubes, PIV SKIN: Ecchymoses on upper extremities. HEAD: Atraumatic. Normocephalic. EYES: Pupils equal and round and reactive. No scleral icterus. No injection or drainage. Fundi not examined. ENT: Hearing grossly normal. Nose without bleeding or purulent drainage. Throat ET tube NECK: Trachea midline. Supple, nontender. No palpable thyroid enlargement or nodularity. CARDIOVASCULAR: Regular rate and rhythm without murmurs, gallops, or rubs. RESPIRATORY/CHEST: Clear to auscultation. No wheezes, rales, or rhonchi. GASTROINTESTINAL: Abdomen soft, non-tender, nondistended. GENITOURINARY: Without palpable bladder distension. Cifuentes catheter in place. MUSCULOSKELETAL: Extremities without clubbing, cyanosis, or edema. LYMPHATICS: No palpable cervical or supraclavicular adenopathy. NEUROLOGICAL: Not responsive Moves all extremities. PSYCHIATRIC: could not examine Diagnostic Tests Laboratory Laboratory Tests Test 03/02/17 03/02/17 03/02/17 07:15 07:20 08:05 White Blood Count 7.2 TH/MM3 (4.0-11.0) Red Blood Count 3.96 MIL/MM3 (4.50-5.90) Hemoglobin 11.6 GM/DL (13.0-17.0) Hematocrit 33.8 % (39.0-51.0) Mean Corpuscular Volume 85.4 FL (80.0-100.0) Mean Corpuscular Hemoglobin 29.2 PG (27.0-34.0) Mean Corpuscular Hemoglobin 34.2 % Concent (32.0-36.0) Red Cell Distribution Width 14.4 % (11.6-17.2) Platelet Count 275 TH/MM3 (150-450) Mean Platelet Volume 7.1 FL (7.0-11.0) Neutrophils (%) (Auto) 86.2 % (16.0-70.0) Lymphocytes (%) (Auto) 5.0 % (9.0-44.0) Monocytes (%) (Auto) 7.9 % (0.0-8.0) Eosinophils (%) (Auto) 0.4 % (0.0-4.0) Basophils (%) (Auto) 0.5 % (0.0-2.0) Neutrophils # (Auto) 6.2 TH/MM3 (1.8-7.7) Lymphocytes # (Auto) 0.4 TH/MM3 (1.0-4.8) Monocytes # (Auto) 0.6 TH/MM3 (0-0.9) Eosinophils # (Auto) 0.0 TH/MM3 (0-0.4) Basophils # (Auto) 0.0 TH/MM3 (0-0.2) CBC Comment DIFF FINAL Differential Comment Prothrombin Time 12.7 SEC (9.8-11.6) Prothromb Time International 1.1 RATIO Ratio Activated Partial 26.8 SEC Thromboplast Time (24.3-30.1) Sodium Level 140 MEQ/L (136-145) Potassium Level 4.1 MEQ/L (3.5-5.1) Chloride Level 106 MEQ/L (98-107) Carbon Dioxide Level 24.6 MEQ/L (21.0-32.0) Anion Gap 9 MEQ/L (5-15) Blood Urea Nitrogen 21 MG/DL (7-18) Creatinine 1.07 MG/DL (0.60-1.30) Estimat Glomerular Filtration 66 ML/MIN (>89) Rate Random Glucose 125 MG/DL (74-106) Calcium Level 8.6 MG/DL (8.5-10.1) Total Bilirubin 0.8 MG/DL (0.2-1.0) Aspartate Amino Transf 18 U/L (15-37) (AST/SGOT) Alanine Aminotransferase 15 U/L (12-78) (ALT/SGPT) Alkaline Phosphatase 102 U/L (45-117) Total Creatine Kinase 42 U/L (39-308) Troponin I 0.11 NG/ML (0.02-0.05) B-Type Natriuretic Peptide 43 PG/ML (0-100) Total Protein 5.6 GM/DL (6.4-8.2) Albumin 2.7 GM/DL (3.4-5.0) Lipase 103 U/L (73-393) Thyroid Stimulating Hormone 1.660 uIU/ML 3rd Gen (0.358-3.740) Urine Color YELLOW (YELLW/STRAW) Urine Turbidity HAZY (CLEAR) Urine pH 5.0 (5.0-8.5) Urine Specific [place] 1.020 (1.002-1.035) Urine Protein 30 mg/dL (NEG-TRACE) Urine Glucose (UA) NEG mg/dL (NEG) Urine Ketones NEG mg/dL (NEG) Urine Occult Blood SMALL (NEG) Urine Nitrite NEG (NEG) Urine Bilirubin NEG (NEG) Urine Urobilinogen 2.0 MG/DL (LESS THAN 2.0) Urine Leukocyte Esterase NEG (NEG) Urine RBC 3 /hpf (0-3) Urine WBC 1 /hpf (0-5) Urine Squamous Epithelial 1 /hpf (0-5) Cells Urine Bacteria OCC /hpf (NONE) Urine Hyaline Casts 32 /lpf (RARE) Urine Mucus FEW /lpf (OCC) Microscopic Urinalysis Comment CULT NOT INDICATED Blood Gas Puncture Site RT RADIAL Blood Gas Patient Temperature 98.6 Blood Gas HCO3 21 mmol/L (22-26) Blood Gas Base Excess -3.0 mmol/L (-2-2) Blood Gas Oxygen Saturation 99 % (90-100) Arterial Blood pH 7.42 (7.380-7.420) Arterial Blood Partial 33 mmHg (38-42) Pressure CO2 Arterial Blood Partial 311 mmHG Pressure O2 (61-120) Arterial Blood Oxygen Content 15.0 Vol % (12.0-20.0) Arterial Blood 1.4 % (0-4) Carboxyhemoglobin Arterial Blood Methemoglobin 0.4 % (0-2) Blood Gas Hemoglobin 10.3 G/DL (12.0-16.0) Oxygen Delivery Device VENTILATOR Blood Gas Ventilator Setting 500/16/PEEP5 Blood Gas Inspired Oxygen 100 % Result Diagram: 03/02/17 0715 03/02/17 [address] Angiography 03/02/17 0800 Signed Impressions: Service Date/Time: Thursday, March 02, 2017 11:27 - CONCLUSION: No evidence of pulmonary embolism. Bibasilar atelectasis or infiltrate and small effusions. Aneurysmal dilatation of the descending thoracic aorta. Samy Maldonado MD Chest X-Ray 03/02/17 0714 Signed Impressions: Service Date/Time: Thursday, March 02, 2017 07:41 - CONCLUSION: Left pleural effusion. Jennifer Parisi MD Head CT 03/02/17 0000 Signed Impressions: Service Date/Time: Tuesday, March 02, 2017 11:23 - CONCLUSION: Little change in evolving right temporoparietal hemorrhage. Samy Maldonado MD Patient/Family Conference Present at Family Conference: Robles Beauchamp Family Conference Time (mins): 35 Family Conference Location: Telephone Issues Discussed: * Palliative care role, purpose, approach * Additional medical, psychosocial, and spiritual history * Patients general health, functional status, and cognitive changes in the months leading up to the current hospitalization * Patient/family understanding of the current medical problems * Patient/family understanding of prognosis * Patients goals of care as best understood from advance directives and/or conversations and/or values * Current medical treatment options and benefits/burdens of those options * Likely scenarios comparing ongoing aggressive care with a transition to comfort measures only * Questions answered to the best of my ability * Palliative care contact information provided Assessment and Plan Disease Oriented Problem List: (1) Respiratory failure Comment: may be aspiration pneumonia. there is pleural effusion (2) Intracerebral hematoma Comment: no change compare to last CT (3) Altered mental status Comment: due to above 2 etiolgy. Hx of dementia. Symptom Scale: (1) Dyspnea 0-10 Scale: Unable to quantify Pertinent Non-Medical Issues Psychosocial: Spiritual: Legal: Ethical issues impacting care: Important Contacts Nito Mccloud [phone]. Prognosis Prognosis is guarded, intubated currently due to respiratory failure. Overall, given his advance age and dementia, functional status, for a functional/ meaningful recovery likely will be poor Code Status: No Code Plan == [place]- no capcity to make medical decision. Dementia for 3 years. == HCP/ HCS- awaiting copy of living will. By [employer], pt is , and pt have only one surviving child, Nito(son), is Health care Proxy. == Code: DNR. No cpr/ shock /ACLS == dyspnea/symptoms- on ventilator, defer to legal service specialist. Goals of care reviewed: == Son on his way from [place]. == Endorse no cpr, compression/ acls. or resucitation. == Pt is to be remain intubated. == Will have schedule palliative care meeting around 9:45 to 10 am tomorrow. ==He did ask if pt could be medically extubated? I state we don't know just yet , but given his advance age and dementia, functional status, overall prognosis for a functional/meaningful recovery likely will be poor. Family is open to transition to comfort measures, if pt clinical conditions continues to worsen. Time Spent Total Floor Time (mins): 67 Face to Face Time (mins): 40 Thank you for the opportunity to participate in the care of Mr. Saleh. Attestation To help prompt me to consider important information that might be impacting today's encounter and assessment, information from prior notes written by myself or my colleagues may have been "brought forward" into today's note. My signature on this note, however, is an attestation that I personally performed the exam, history, and/or decision-making noted today, and, unless otherwise indicated, the interactions with patient, family, and staff as well as the review of records all occurred today. I also attest that the listed assessment and stated plan reflect my best clinical judgment today based on the combination of historical information, prior notes, and today's exam/ interactions. When time spent is documented, it refers only to time spent today by the signer, or if indicated, combined time spent today by collaborating physician/nurse practitioner. Jasbir Salcedo MD Mar 02, 2017 16:41
[2017-03-02] MEDS ORDERED: PROPOFOL 1000 MG/100 ML INJ 100 ML IV SCH (19:00)
[2017-03-02] MEDS ORDERED: CHLORHEXIDINE 0.12% (ORAL KIT) 15 ML CUP MT SCH (20:00)
--- NOTE | 2017-03-02 20:25 | EKG ---
Date Performed: 03/02/2017 Time Performed: 07:44:39 PTAGE: 86 years EKG: SINUS TACHYCARDIA WITH SHORT SD INTERVAL MARKED LEFT AXIS DEVIATION LOW QRS VOLTAGE IN EXTR EMITY LEADS ABNORMAL ECG PREVIOUS TRACING : 02/25/2017 17.10 Compared to prior tracing no significant change DOCTOR: Joanna Nolen Interpretating Date/Time 03/02/2017 20:25:38
[2017-03-02] MEDS ORDERED: DOCUSATE SODIUM 50 MG/SENNA 8.6 MG TAB PO SCH (21:00)
[2017-03-02] MEDS ORDERED: SODIUM CHLORIDE 0.9% FLUSH 10 ML FLUSH IV FLUSH SCH (21:00)
--- NOTE | 2017-03-02 23:05 | MG ---
cc: EMILE ZAMORA MD Lab No: [id number] Date: 03/02/17 Age: 86 Sex: M Race: DATE OF 1930 HISTORY 86-year-old, intubated, mental status changes. 1-2 Hz suppressed delta activity occurring, 5-10 microvolts. , driving with photic stimulation. Single EKG showing what appeared to be sinus tachycardia. Hand tremors, head twitch noted. No obvious epileptic correlation. High-frequency frontal channels. INTERPRETATION Moderate to severe encephalopathy. Clinical correlation. Emile Zamora MD MG/EO /9:14 PM /10:51 PM
[2017-03-03] VITALS (29 sets, daily range): BP systolic 81–130; BP diastolic 43–63; PULSE 84–137; RESP 14–38; TEMP 98.7–98.9; O2SAT 32–100
[2017-03-03] MEDS: RESP: ALBUTEROL 2.5 MG/IPRATROPIUM 0.5 MG NEB (SCH) INH ×2 (03:22→08:56)
[2017-03-03] MEDS ORDERED: CHLORHEXIDINE GLUCONATE 2 % 1 PACK (2 CLOTHS) TOP SCH (04:00)
[2017-03-03 04:33] LABS: HEMATOCRIT 32.1 % (39.0-51.0); MEAN CELL VOLUME 86.5 FL (80.0-100.0); MEAN CORPUSCULAR HEMOGLOBIN 29.3 PG (27.0-34.0); MEAN CORPUSCULAR HGB CONC 33.8 % (32.0-36.0); PLATELET COUNT 213 TH/MM3 (150-450); RED BLOOD COUNT 3.71 MIL/MM3 (4.50-5.90); RED CELL DISTRIBUTION WIDTH 14.6 % (11.6-17.2); REVIEW FLAG FINAL; WHITE BLOOD COUNT 9.1 TH/MM3 (4.0-11.0)
[2017-03-03 04:53] LABS: BICARBONATE 22.6 MEQ/L (21.0-32.0); MAGNESIUM 1.9 MG/DL (1.5-2.5); POTASSIUM 3.6 MEQ/L (3.5-5.1)
--- NOTE | 2017-03-03 06:16 | RADRPT ---
EXAM DATE/TIME: 03/03/2017 03:45 [facility] COMPARISON: CT PULMONARY ANGIOGRAM, March 02, 2017, 11:27. CHEST SINGLE AP, March 02, 2017, 7:41. INDICATIONS : Respiratory failure. MEDICAL HISTORY : None. SURGICAL HISTORY : None. ENCOUNTER: Subsequent ACUITY: 1 week PAIN SCORE: Non-responsive. LOCATION: Bilateral chest FINDINGS: Portable AP view of the chest demonstrates a normal-sized cardiac silhouette. ETT remains present. Valerie ngs are underinflated and there is stable left basilar opacity. No pneumothorax is identified. CONCLUSION: Stable chest x-ray with left basilar opacity. Samy Talavera MD on March 03, 2017 at 6:14 Board Certified Radiologist. This report was verified electronically.
--- NOTE | 2017-03-03 06:35 | MB ---
cc: GERSON TURNER M.D. DATE OF CONSULTATION 03/02/2017 REASON FOR CONSULTATION History of cerebral hemorrhage, mental status change. HISTORY OF PRESENT ILLNESS Mr. Mccloud is an 86-year-old man who was recently admitted with a fall with intracerebral hemorrhage involving the left occipital region which was followed. He went home. He was readmitted with respiratory distress with an O2 sat in the 70s and was hypotensive. He has been intubated as well. He did have a CT of the thorax which was negative for PE. CT of the brain is performed showing a right posterior temporal parietal hemorrhage with no change from prior study. CURRENT MEDICATIONS 1. Protonix 2. Leonor-Colace 3. Peridex 4. Artificial tears 5. Tylenol NEUROLOGIC EXAMINATION The patient opens his eyes to command, follows simple commands. Pupils equal and reactive. Extraocular movements intact. On motor exam, he sweeper brush maker machine equally. CT of the brain shows a right temporal parietal hemorrhage unchanged from previous study. LABORATORY DATA White count 7200, hemoglobin 11.6, hematocrit 33%, platelets 275 thousand. Sodium is 140, potassium 4.1, chloride 106, CO2 25, BUN is 21, creatinine 1.07. IMPRESSION The patient's hemorrhage is stable at the present time. Continue following this. He probably has hypoxic encephalopathy as well. MD ALVIN Dorsey/PAYAL /9:14 PM /6:28 AM
[2017-03-03] MEDS: ARTIFICIAL TEARS OPTH SOLN 15 ML BTL EACH EYE SCH (08:44)
[2017-03-03] MEDS ORDERED: PANTOPRAZOLE SODIUM 40 MG VIAL IV SCH (09:00)
[2017-03-03] MEDS: SODIUM CHLOR 0.9% 1000 ML INJ 1,000 ML IV SCH (10:43)
[2017-03-03] MEDS ORDERED: LORazepam 2 MG/ML VIAL IV ONE ×2 (11:30→11:45)
[2017-03-03] MEDS ORDERED: HYOSCYAMINE 0.125 MG TAB PO/SL ONE (11:30)
[2017-03-03] MEDS ORDERED: MORPHINE SULFATE 8 MG/ML INJ IV PUSH ONE (11:30)
[2017-03-03] MEDS ORDERED: MORPHINE SULFATE 4 MG/ML INJ IV ONE (11:45)
--- NOTE | 2017-03-03 11:45 | HHI.HCPN ---
Reason for visit a. To assist with evaluation and management of symptoms including:dyspnea b. To assist medical decision maker(s) with: better understanding of current medical conditions; weighing benefits/burdens of medical treatment options; making medical treatment decisions. Subjective/Interval History Pt remains on the ventilator. EEG show encephalopathy. Pt does not open eyes or follow commands for me. Lungs are underinflated. with left basilar opacity. case d/w with tag press operator. Family/friend interactions Goals of care review with pt's son, Nito, daughter in law and grandchildren. == updated lab results. == spoke with family about clinical status. review option of continue aggressive care, in which case per tag press operator, likely will need trach and peg. == reviewed pt's living will and DNR. == family endorsed, he would not have want any of this, and if he had capacity to make medical decisions, he would want to transition to comfort only and extubation. Family endorse that pt completed his living will and thought thoroughly about end life scenerios, after his past and also after his stroke in the past. == Family supports and reafirms pt's DNR and living will, and at first expressed frustration that pt was intubated in the first place. == Family also express frustration when pt was discharge last hospitalization, about not being informed of discharge, and clinical condition. == I listen to their frustration. == Exhibits completed and signed. Case d/w tag press operator. == family amenable to hospice should pt persist. Advance Directives Living Will: Copy in medical record Health Care Surrogate: Copy in medical record (and [place] community DNR) Objective Vital Signs Date Time Temp Pulse Resp B/P Pulse Ox O2 Delivery O2 Flow Rate FiO2 03/03/17 09:30 88 15 122/57 100 03/03/17 09:00 91 15 102/56 99 03/03/17 08:56 98 40 03/03/17 08:30 92 15 105/54 99 03/03/17 08:00 93 14 105/57 99 03/03/17 08:00 89 03/03/17 08:00 40 03/03/17 06:00 105 03/03/17 04:41 99 40 03/03/17 04:00 98.9 100 18 103/57 96 03/03/17 04:00 110 03/03/17 02:05 100 40 03/03/17 02:00 110 03/03/17 00:00 112 03/03/17 00:00 98.7 111 36 93/56 96 03/03/17 00:00 50 03/02/17 23:20 98 50 03/02/17 22:00 50 03/02/17 22:00 119 03/02/17 21:18 95 50 03/02/17 20:00 119 03/02/17 20:00 100 03/02/17 20:00 99.8 119 24 104/59 96 03/02/17 20:00 124 03/02/17 17:45 123 03/02/17 17:30 122 03/02/17 17:15 122 03/02/17 17:10 121 03/02/17 17:10 121 21 143/77 03/02/17 16:30 100 100 03/02/17 16:10 113 16 136/70 100 Ventilator 03/02/17 15:58 117 16 139/65 100 Ventilator 03/02/17 15:00 99.9 110 16 107/57 100 Ventilator 03/02/17 14:15 108 16 120/78 100 Ventilator 03/02/17 13:53 100 50 03/02/17 13:30 105 16 138/85 100 Ventilator Physical Exam CONSTITUTIONAL/GENERAL: This is elderly genetleman intubated TUBES/LINES/DRAINS: ET tubes, PIV SKIN: Ecchymoses on upper extremities. HEAD: Atraumatic. Normocephalic. EYES: Pupils equal and round and reactive. No scleral icterus. No injection or drainage. Fundi not examined. ENT: Hearing grossly normal. Nose without bleeding or purulent drainage. Throat ET tube NECK: Trachea midline. Supple, nontender. No palpable thyroid enlargement or nodularity. CARDIOVASCULAR: Regular rate and rhythm without murmurs, gallops, or rubs. RESPIRATORY/CHEST: Clear to auscultation. No wheezes, rales, or rhonchi. GASTROINTESTINAL: Abdomen soft, non-tender, nondistended. GENITOURINARY: Without palpable bladder distension. Cifuentes catheter in place. MUSCULOSKELETAL: Extremities without clubbing, cyanosis, or edema. LYMPHATICS: No palpable cervical or supraclavicular adenopathy. NEUROLOGICAL: Not responsive on my exam. PSYCHIATRIC: could not examine Diagnostic Tests Laboratory Laboratory Tests Test 03/02/17 03/02/17 03/02/17 03/02/17 07:15 07:20 08:05 15:15 White Blood Count 7.2 TH/MM3 (4.0-11.0) Red Blood Count 3.96 MIL/MM3 (4.50-5.90) Hemoglobin 11.6 GM/DL (13.0-17.0) Hematocrit 33.8 % (39.0-51.0) Mean Corpuscular Volume 85.4 FL (80.0-100.0) Mean Corpuscular Hemoglobin 29.2 PG (27.0-34.0) Mean Corpuscular Hemoglobin 34.2 % Concent (32.0-36.0) Red Cell Distribution Width 14.4 % (11.6-17.2) Platelet Count 275 TH/MM3 (150-450) Mean Platelet Volume 7.1 FL (7.0-11.0) Neutrophils (%) (Auto) 86.2 % (16.0-70.0) Lymphocytes (%) (Auto) 5.0 % (9.0-44.0) Monocytes (%) (Auto) 7.9 % (0.0-8.0) Eosinophils (%) (Auto) 0.4 % (0.0-4.0) Basophils (%) (Auto) 0.5 % (0.0-2.0) Neutrophils # (Auto) 6.2 TH/MM3 (1.8-7.7) Lymphocytes # (Auto) 0.4 TH/MM3 (1.0-4.8) Monocytes # (Auto) 0.6 TH/MM3 (0-0.9) Eosinophils # (Auto) 0.0 TH/MM3 (0-0.4) Basophils # (Auto) 0.0 TH/MM3 (0-0.2) CBC Comment DIFF FINAL Differential Comment Prothrombin Time 12.7 SEC (9.8-11.6) Prothromb Time International 1.1 RATIO Ratio Activated Partial 26.8 SEC Thromboplast Time (24.3-30.1) Sodium Level 140 MEQ/L (136-145) Potassium Level 4.1 MEQ/L (3.5-5.1) Chloride Level 106 MEQ/L (98-107) Carbon Dioxide Level 24.6 MEQ/L (21.0-32.0) Anion Gap 9 MEQ/L (5-15) Blood Urea Nitrogen 21 MG/DL (7-18) Creatinine 1.07 MG/DL (0.60-1.30) Estimat Glomerular Filtration 66 ML/MIN (>89) Rate Random Glucose 125 MG/DL (74-106) Calcium Level 8.6 MG/DL (8.5-10.1) Total Bilirubin 0.8 MG/DL (0.2-1.0) Aspartate Amino Transf 18 U/L (15-37) (AST/SGOT) Alanine Aminotransferase 15 U/L (12-78) (ALT/SGPT) Alkaline Phosphatase 102 U/L (45-117) Total Creatine Kinase 42 U/L (39-308) Troponin I 0.11 NG/ML (0.02-0.05) B-Type Natriuretic Peptide 43 PG/ML 58 PG/ML (0-100) (0-100) Total Protein 5.6 GM/DL (6.4-8.2) Albumin 2.7 GM/DL (3.4-5.0) Lipase 103 U/L (73-393) Thyroid Stimulating Hormone 1.660 uIU/ML 3rd Gen (0.358-3.740) Urine Color YELLOW (YELLW/STRAW) Urine Turbidity HAZY (CLEAR) Urine pH 5.0 (5.0-8.5) Urine Specific [place] 1.020 (1.002-1.035) Urine Protein 30 mg/dL (NEG-TRACE) Urine Glucose (UA) NEG mg/dL (NEG) Urine Ketones NEG mg/dL (NEG) Urine Occult Blood SMALL (NEG) Urine Nitrite NEG (NEG) Urine Bilirubin NEG (NEG) Urine Urobilinogen 2.0 MG/DL (LESS THAN 2.0) Urine Leukocyte Esterase NEG (NEG) Urine RBC 3 /hpf (0-3) Urine WBC 1 /hpf (0-5) Urine Squamous Epithelial 1 /hpf (0-5) Cells Urine Bacteria OCC /hpf (NONE) Urine Hyaline Casts 32 /lpf (RARE) Urine Mucus FEW /lpf (OCC) Microscopic Urinalysis Comment CULT NOT INDICATED Blood Gas Puncture Site RT RADIAL Blood Gas Patient Temperature 98.6 Blood Gas HCO3 21 mmol/L (22-26) Blood Gas Base Excess -3.0 mmol/L (-2-2) Blood Gas Oxygen Saturation 99 % (90-100) Arterial Blood pH 7.42 (7.380-7.420) Arterial Blood Partial 33 mmHg (38-42) Pressure CO2 Arterial Blood Partial 311 mmHG Pressure O2 (61-120) Arterial Blood Oxygen Content 15.0 Vol % (12.0-20.0) Arterial Blood 1.4 % (0-4) Carboxyhemoglobin Arterial Blood Methemoglobin 0.4 % (0-2) Blood Gas Hemoglobin 10.3 G/DL (12.0-16.0) Oxygen Delivery Device VENTILATOR Blood Gas Ventilator Setting 500/16/PEEP5 Blood Gas Inspired Oxygen 100 % Ammonia LESS THAN 10 MCMOL/L (11-32) Test 03/02/17 03/03/17 17:00 03:56 Nasal Screen MRSA (PCR) MRSA NOT DETECTED (NOT DETECT) White Blood Count 9.1 TH/MM3 (4.0-11.0) Red Blood Count 3.71 MIL/MM3 (4.50-5.90) Hemoglobin 10.8 GM/DL (13.0-17.0) Hematocrit 32.1 % (39.0-51.0) Mean Corpuscular Volume 86.5 FL (80.0-100.0) Mean Corpuscular Hemoglobin 29.3 PG (27.0-34.0) Mean Corpuscular Hemoglobin 33.8 % Concent (32.0-36.0) Red Cell Distribution Width 14.6 % (11.6-17.2) Platelet Count 213 TH/MM3 (150-450) Mean Platelet Volume 7.0 FL (7.0-11.0) Sodium Level 141 MEQ/L (136-145) Potassium Level 3.6 MEQ/L (3.5-5.1) Chloride Level 109 MEQ/L (98-107) Carbon Dioxide Level 22.6 MEQ/L (21.0-32.0) Anion Gap 9 MEQ/L (5-15) Blood Urea Nitrogen 34 MG/DL (7-18) Creatinine 1.24 MG/DL (0.60-1.30) Estimat Glomerular Filtration 56 ML/MIN (>89) Rate Random Glucose 112 MG/DL (74-106) Calcium Level 9.2 MG/DL (8.5-10.1) Phosphorus Level 3.4 MG/DL (2.5-4.9) Magnesium Level 1.9 MG/DL (1.5-2.5) B-Type Natriuretic Peptide 51 PG/ML (0-100) Result Diagram: 03/03/17 0356 03/03/17 0356 Microbiology Microbiology Date/Time Procedure Status Source Growth 03/02/17 23:30 Gram Stain - Final Resulted Sputum Oral Tracheal Aspirate 03/02/17 23:30 Sputum Culture Resulted Sputum Oral Tracheal Aspirate Pending Imaging Last Impressions Chest X-Ray 03/03/17 0600 Signed Impressions: Service Date/Time: February 03:45 - CONCLUSION: Stable chest x-ray with left basilar opacity. Samy Talavera MD CT Angiography 03/02/17 0800 Signed Impressions: Service Date/Time: Tuesday, March 02, 2017 11:27 - CONCLUSION: No evidence of pulmonary embolism. Bibasilar atelectasis or infiltrate and small effusions. Aneurysmal dilatation of the descending thoracic aorta. Samy Maldonado MD Head CT 03/02/17 0000 Signed Impressions: Service Date/Time: Tuesday, March 02, 2017 11:23 - CONCLUSION: Little change in evolving right temporoparietal hemorrhage. Samy Maldonado MD Assessment and Plan Disease Oriented Problem List: (1) Respiratory failure Comment: may be aspiration pneumonia. there is pleural effusion (2) Intracerebral hematoma Comment: no change compare to last CT (3) Altered mental status Comment: due to above 2 etiolgy. Hx of dementia. Symptom Scale: (1) Dyspnea 0-10 Scale: Unable to quantify Pertinent Non-Medical Issues Psychosocial: Spiritual: Legal: Ethical issues impacting care: Important Contacts Nito Mccloud [phone]. Prognosis Prognosis is guarded, intubated currently due to respiratory failure. Overall, given his advance age and dementia, functional status, for a functional/ meaningful recovery likely will be poor Code Status: No Code Plan == [place]- no capcity to make medical decision. Dementia for 3 years. == HCP/ HCS- awaiting copy of living will. By [employer], pt is , and pt have only one surviving child, Nito(son), is Health care Proxy. == Code: DNR. No cpr/ shock /ACLS == dyspnea/symptoms- on ventilator, defer to tag press operator. Goals of care reviewed: Goals of care review with pt's son, Nito, daughter in law and grandchildren. == updated lab results. == spoke with family about clinical status. review option of continue aggressive care, in which case per tag press operator, likely will need trach and peg. Pt has encephalopathy == reviewed pt's living will and DNR. == family endorsed, he would not have want any of this, and if he had capacity to make medical decisions, he would want to transition to comfort only and extubation. Family endorse that pt completed his living will and thought thoroughly about end life scenerios, after his past and also after his stroke in the past. == Family supports and reaffirms pt's DNR and living will, and at first expressed frustration that pt was intubated in the first place. == Family also express frustration when pt was discharge last hospitalization, about not being informed of discharge, and his clinical condition. == I listen to their frustration. == Exhibits completed and signed. Case d/w tag press operator. == family amenable to hospice should pt persist. case d/w tag press operator. Time Spent Total Floor Time (mins): 48 >50% Counseling/Coord of Care: Yes Attestation To help prompt me to consider important information that might be impacting today's encounter and assessment, information from prior notes written by myself or my colleagues may have been "brought forward" into today's note. My signature on this note, however, is an attestation that I personally performed the exam, history, and/or decision-making noted today, and, unless otherwise indicated, the interactions with patient, family, and staff as well as the review of records all occurred today. I also attest that the listed assessment and stated plan reflect my best clinical judgment today based on the combination of historical information, prior notes, and today's exam/ interactions. When time spent is documented, it refers only to time spent today by the signer, or if indicated, combined time spent today by collaborating physician/nurse practitioner. Jasbir Salcedo MD Mar 03, 2017 11:45
--- NOTE | 2017-03-03 11:59 | HHI.CCPN ---
Subjective Remarks/Hospital Course This is an 88-year-old male who returns to the emergency room from a shelter facility secondary to respiratory distress. Upon EMS arrival the patient was noted to have O2 sat duration in the 70s and systolic blood pressure in the 70s and tachycardic with a heart rate in the 120s. Patient received medication to include Ativan and etomidate and was intubated on the scene and trans-reported to the emergency department. Of note this patient was admitted 02/25/17 status post intracerebral hemorrhage from a fall. The patient was being followed by neurosurgery at that time Dr. Vasquez was discharged on 03/02/2017, last evening. Upon arrival to the ED the patient received small boluses of fluid, heart rate 80s to 90s, blood pressure systolic 120 and imaging studies were performed. Concern for pulmonary embolus/CT thorax was performed which resulted negative. CT brain was also performed which showed the evolving right temporal parietal hemorrhage which was minimally changed. Critical care medicine was consulted for management. Upon arrival to the ED the patient on no sedation, nonresponsive, vital signs within normal limits. Subjective: 03/03: No change in neurological status overnight. EEG performed shows severe encephalopathy. Neurology, Dr. Grimaldo following with impression probable hypoxic encephalopathy. Extensive discussion with family per Dr. Salcedo and bedside nurse decision made for compassionate withdrawal today, secondary to the patient's multiple comorbidities. Objective Vital Signs Date Time Temp Pulse Resp B/P Pulse Ox O2 Delivery O2 Flow Rate FiO2 03/03/17 11:41 Room Air 03/03/17 09:30 88 15 122/57 100 03/03/17 08:56 40 03/03/17 04:00 98.9 Intake and Output 03/02/17 03/02/17 03/03/17 08:00 16:00 00:00 Intake Total 250 ml Output Total 500 ml Balance -250 ml Result Diagram: 03/03/17 0356 03/03/17 [address] Angiography 03/02/17 0800 Signed Impressions: Service Date/Time: Thursday, March 02, 2017 11:27 - CONCLUSION: No evidence of pulmonary embolism. Bibasilar atelectasis or infiltrate and small effusions. Aneurysmal dilatation of the descending thoracic aorta. Samy Maldonado MD Chest X-Ray 03/02/17 0714 Signed Impressions: Service Date/Time: Thursday, March 02, 2017 07:41 - CONCLUSION: Left pleural effusion. KJillian Parisi MD Head CT 03/02/17 0000 Signed Impressions: Service Date/Time: Thursday, March 02, 2017 11:23 - CONCLUSION: Little change in evolving right temporoparietal hemorrhage. Samy Maldonado MD Objective Remarks GENERAL: Critically ill-appearing elderly gentleman unresponsive intubated and sedated SKIN: Warm and dry. HEAD: Atraumatic. Normocephalic. EYES: Pupils equal and round. No scleral icterus. No injection or drainage. ENT: No nasal bleeding or discharge. Mucous membranes pink and moist. NECK: Trachea midline. No JVD. CARDIOVASCULAR: Normal rate, regular rhythm. RESPIRATORY: No accessory muscle use. Clear to auscultation. Breath sounds equal bilaterally. GASTROINTESTINAL: Abdomen soft, non-tender, nondistended. No guarding. MUSCULOSKELETAL: Extremities without clubbing, cyanosis, or edema. No obvious deformities. NEUROLOGICAL: GCS 3T. Fine tremors noted bilateral upper and lower extremities. Does not follow commands Urinary Catheter: Yes Cifuentes insert reason: Measure Accurate Output A/P Assessment and Plan Respiratory arrest Probable aspiration ammonia TBI S/P Intracerebral hemorrhage-temporoparietal 02/25 Altered mental status Dementia GERD History of hypertension Neurologic: -Neurochecks per ICU protocol -Patient currently on no sedation not responsive, received Ativan during intubation and etomidate -Neurology following-Dr. Grimaldo - EEG-probable hypoxic encephalopathy -03/02 CT brainunchanged involving right temporoparietal hemorrhage Respiratory: -Ventilator bundle -CPAP trials -03/02 chest x-ray small left pleural effusion -03/02 CT PE profile-negative for pulmonary embolus -Obtain sputum culture -Bronchodilators every 6 hours schedule, every 2 hours when necessary Cardiovascular: -Maintain MAP greater than 65mmHg -Will resume antihypertensive medications when clinically indicated Renal: -Insert Cifuentes -- Strict I/Os FEN/GI: --Gentle hydration normal saline 42 cc an hour Heme/ID: --Monitor CBC -- blood urine cultures, pending Endocrine: Glucose monitoring per ICU protocol, low dose regimen -- SSI Prophylaxis: GI Prophylaxis Protonix DVT Prophylaxis -- SCDs No pharmacological anticoagulation in the setting of intracerebral hemorrhage Lines: Peripheral IVs 2. Central line if indicated Level 3 Dispo: Extensive discussion with son Nito [place] with palliative care team and bedside nursing. Plan for compassionate withdrawal today. All questions answered. Physician Nargis Varma MD Mar 03, 2017 11:59
[2017-03-03] MEDS ORDERED: LORazepam 2 MG/ML VIAL IVS PRN (12:00)
[2017-03-03] MEDS ORDERED: MORPHINE SULFATE 4 MG/ML INJ IV PRN (12:00)
[2017-03-03] MEDS ORDERED: BISACODYL 10 MG SUPP RECTAL PRN (12:00)
[2017-03-03] MEDS ORDERED: FUROSEMIDE 20 MG/2 ML VIAL IV PRN (12:00)
[2017-03-03] MEDS ORDERED: ACETAMINOPHEN 650 MG SUPP RECTAL PRN (12:00)
[2017-03-03] MEDS ORDERED: MORPHINE SULFATE 4 MG/ML INJ IV SCH (12:00)
[2017-03-03] MEDS ORDERED: MORPHINE SULFATE 8 MG/ML INJ IV PUSH PRN (12:00)
[2017-03-03] MEDS ORDERED: LORazepam 2 MG/ML VIAL IV PRN ×2 (12:00)
[2017-03-03] MEDS: LORazepam 2 MG/ML VIAL IV SCH ×3 (12:06→13:48)
--- NOTE | 2017-03-03 12:58 | EKG ---
Date Performed: 03/02/2017 Time Performed: 15:11:45 PTAGE: 86 years EKG: SINUS TACHYCARDIA MARKED LEFT AXIS DEVIATION ABNORMAL ECG PREVIOUS TRACING : 03/02/2017 07.44 DOCTOR: Geraldo Mcpherson Interpretating Date/Time 03/03/2017 12:52:52
== END 2017-03-03 14:47 | disposition expired | DRG 208 ==
LOC: NEPC 06:59 → NEDA 09:17 → HIME 17:00
PROVIDERS: ADMIT Anesthesiology; ATTEND Anesthesiology
PROC: 5A1935Z Respiratory Ventilation, Less than 24 Consecutive Hours (ICD-10-PCS; principal; 2017-03-02)
DX: J96.00 Acute respiratory failure, unspecified whether with hypoxia or hypercapnia (principal); J69.0 Pneumonitis due to inhalation of food and vomit; G93.1 Anoxic brain damage, not elsewhere classified; J90 Pleural effusion, not elsewhere classified; F41.9 Anxiety disorder, unspecified; I10 Essential (primary) hypertension; F03.90 Unspecified dementia, unspecified severity, without behavioral disturbance, psychotic disturbance, mood disturbance, and anxiety; K21.9 Gastro-esophageal reflux disease without esophagitis; I71.4 Abdominal aortic aneurysm, without rupture; Z51.5 Encounter for palliative care; Z66 Do not resuscitate; S06.360D Traumatic hemorrhage of cerebrum, unspecified, without loss of consciousness, subsequent encounter; Z86.73 Personal history of transient ischemic attack (TIA), and cerebral infarction without residual deficits; Z87.891 Personal history of nicotine dependence
CPT/HCPCS: 36600; 51702; 70450; 71010; 71275; 80048; 80053; 81001; 82140; 82550; 82805; 83690; 83735; 83880; 84100; 84443; 84484; 85025; 85027; 85610; 85730; 87070; 87205; 87641; 93005; 94002; 94003; 94640; 94664; 95819; 96360; C9113; J2060; J2270; J7030; J7040; Q9967